=== PATIENT | female | born 1960 | race Asian ===

== ENCOUNTER 2016-07-24 13:26 | Inpatient (IN) | payer MEDICARE, MEDICAID ==
[~2016-07-24] VITALS: Ht 165.1 cm; Wt 73.5 kg
[~2016-07-24 13:26] MED LIST: CLOZ100 PO; DOCU250C76 PO; GABA-531 PO; OLAN10TA3 PO
[2016-07-24 15:54] VITALS: BP 113/77
[2016-07-24] MEDS ORDERED: PNEUMOCOCCAL VACCINE POLYVALENT 0.5 ML VIAL [PPSV23] IM ONE (16:15)
[2016-07-24] MEDS ORDERED: INFLUENZA VIRUS VACCINE QVS 2016-17 (3YR+)/PF 60 MCG/0.5 ML SYRINGE IM ONE (16:15)
[2016-07-24 16:21] LABS: GLUCOSE,POINT OF CARE 157 MG/DL (70-110)
[2016-07-24 16:25] VITALS: BP 122/97
[2016-07-24] MEDS ORDERED: GLUCAGON,HUMAN RECOMBINANT 1 MG VIAL IM PRN (16:45)
[2016-07-24] MEDS: INSULIN ASPART 100 UNITS/ML SQ PRN (16:54)
[2016-07-24 21:25] LABS: GLUCOSE,POINT OF CARE 110 MG/DL (70-110)
[2016-07-25 00:51] VITALS: BP 108/72
[2016-07-25 06:16] LABS: GLUCOSE,POINT OF CARE 124 MG/DL (70-110)
[2016-07-25 08:01] LABS: BASOPHILS # (AUTO) 0.05 K/uL (0.00-0.20); BASOPHILS % (AUTO) 0.7 % (0.0-2.0); EOSINOPHILS # (AUTO) 0.12 K/uL (0.00-0.70); EOSINOPHILS % (AUTO) 1.42 % (1.0-6.0); HEMATOCRIT 42.5 % (36-46); HEMOGLOBIN 14.1 g/dL (12.0-16.0); LYMPHOCYTES % (AUTO) 36.7 % (22.0-44.0); MEAN CORPUSCULAR HEMOGLOBIN 30.5 pg (26.0-34.0); MEAN CORPUSCULAR HGB CONC 33.2 G/dL (31.0-37.0); MEAN CORPUSCULAR VOLUME 92 fL (80-100); MONOCYTES # (AUTO) 0.5 K/uL (0.1-1.0); MONOCYTES % (AUTO) 6.3 % (2.0-9.0); NEUTROPHILS # (AUTO) 4.6 K/uL (1.8-7.7); PLATELET COUNT (AUTO) 277 K/uL (150-450); RED BLOOD CELL COUNT(AUTO) 4.62 MIL/uL (4.00-5.20); RED CELL DISTRIBUTION WIDTH 13.5 % (11.5-14.5); WHITE BLOOD COUNT (AUTO) 8.3 K/uL (4.5-11.0)
[2016-07-25 08:10] VITALS: BP 100/61
[2016-07-25 08:20] LABS: HEMOGLOBIN A1C 5.7 % (4.5-6.2)
[2016-07-25 08:37] LABS: ALANINE AMINOTRANSFERASE 60 U/L (12-78); ALBUMIN 3.6 g/dL (3.4-5.0); ANION GAP 9 mmol/L (8-16); ASPARTATE AMINOTRANSFERASE 27 U/L (15-37); BILIRUBIN,TOTAL 0.6 mg/dL (0.1-1.0); CARBON DIOXIDE 26 mmol/L (22-29); CHLORIDE 106 mmol/L (98-107); CHOL/HDL RATIO 3.1 (3.9-5.7); CREATININE 0.67 mg/dL (0.60-1.30); GLOMERULAR FILTR. RATE CALC > 60 mL/min (>60); POTASSIUM 4.3 mmol/L (3.5-5.1); SODIUM SERUM 141 mmol/L (136-145); THYROID STIMULATING HORMONE 1.11 uIU/mL (0.36-3.74); TOTAL PROTEIN, SERUM 6.4 g/dL (6.4-8.2); UREA NITROGEN, BLOOD 16 mg/dL (7-18)
[2016-07-25] MEDS: GABAPENTIN 400 MG CAPSULE PO SCH ×3 (08:51→16:30)
[2016-07-25] MEDS: NICOTINE 21 MG/24 HOUR PATCH TD SCH (08:52)
[2016-07-25] MEDS ORDERED: CloZAPine 25 MG TABLET PO SCH (09:00)
[2016-07-25] MEDS: HALOPERIDOL 5 MG TABLET PO PRN (10:21)
[2016-07-25 11:00] LABS: GLUCOSE,POINT OF CARE 118 MG/DL (70-110)
[2016-07-25 16:10] VITALS: BP 115/73
[2016-07-25 16:10] LABS: GLUCOSE,POINT OF CARE 145 MG/DL (70-110)
[2016-07-25] MEDS: INSULIN ASPART 100 UNITS/ML SQ PRN (16:31)
[2016-07-25 20:11] LABS: GLUCOSE,POINT OF CARE 126 MG/DL (70-110)
[2016-07-26 00:05] VITALS: BP 125/86
[2016-07-26] MEDS: ZOLPIDEM TARTRATE 10 MG TABLET PO PRN (00:13)
[2016-07-26 06:01] LABS: GLUCOSE,POINT OF CARE 130 MG/DL (70-110)
[2016-07-26] MEDS: LORazepam 2 MG TABLET PO PRN (08:04)
[2016-07-26] MEDS: NICOTINE 21 MG/24 HOUR PATCH TD SCH (08:05)
[2016-07-26] MEDS: GABAPENTIN 400 MG CAPSULE PO SCH ×3 (08:05→16:35)
[2016-07-26 08:33] VITALS: BP 123/94
[2016-07-26] MEDS: HALOPERIDOL 5 MG TABLET PO PRN (08:51)
[2016-07-26] MEDS ORDERED: CloZAPine 25 MG TABLET PO SCH ×2 (09:00→21:00)
[2016-07-26] MEDS: DOCUSATE SODIUM 100 MG CAPSULE PO SCH ×2 (09:06→16:34)
[2016-07-26] MEDS ORDERED: TUBERCULIN, PURIFIED PROTEIN DERIVATIVE 5 TU/0.1 ML SYG ID ONE (10:45)
[2016-07-26 12:31] LABS: GLUCOSE,POINT OF CARE 122 MG/DL (70-110)
[2016-07-26 16:02] VITALS: BP_SYST 121; BP_SYST 128; BP_DIAS 77; BP_DIAS 86
[2016-07-26 16:10] LABS: GLUCOSE,POINT OF CARE 148 MG/DL (70-110)
[2016-07-26] MEDS: INSULIN ASPART 100 UNITS/ML SQ PRN (16:28)
[2016-07-26] MEDS: MAGNESIUM HYDROXIDE SUSPENSION 30 ML UDCUP PO PRN (17:55)
[2016-07-26 20:16] LABS: GLUCOSE,POINT OF CARE 138 MG/DL (70-110)
[2016-07-27 06:21] VITALS: BP 120/90
[2016-07-27 06:37] LABS: GLUCOSE,POINT OF CARE 124 MG/DL (70-110)
[2016-07-27 08:10] VITALS: BP 127/92
[2016-07-27] MEDS: LORazepam 2 MG TABLET PO PRN (08:26)
[2016-07-27] MEDS: GABAPENTIN 400 MG CAPSULE PO SCH ×3 (08:26→16:56)
[2016-07-27] MEDS: HALOPERIDOL 5 MG TABLET PO PRN (08:26)
[2016-07-27] MEDS: DOCUSATE SODIUM 100 MG CAPSULE PO SCH ×2 (08:26→16:49)
[2016-07-27] MEDS: NICOTINE 21 MG/24 HOUR PATCH TD SCH (08:26)
[2016-07-27] MEDS ORDERED: CloZAPine 25 MG TABLET PO SCH ×2 (09:00→21:00)
[2016-07-27 11:23] VITALS: BP 103/74
[2016-07-27 16:23] VITALS: BP 119/71
[2016-07-27 16:47] LABS: GLUCOSE,POINT OF CARE 187 MG/DL (70-110)
[2016-07-27] MEDS: INSULIN ASPART 100 UNITS/ML SQ PRN (16:48)
[2016-07-27] MEDS: MAGNESIUM HYDROXIDE SUSPENSION 30 ML UDCUP PO PRN (20:23)
[2016-07-27 20:42] LABS: GLUCOSE,POINT OF CARE 114 MG/DL (70-110)
[2016-07-27] MEDS: LevETIRAcetam 250 MG TABLET PO SCH (21:55)
[2016-07-28 06:04] VITALS: BP 109/68
[2016-07-28 06:41] LABS: GLUCOSE,POINT OF CARE 139 MG/DL (70-110)
[2016-07-28 08:09] VITALS: BP 126/84
[2016-07-28] MEDS: LevETIRAcetam 250 MG TABLET PO SCH ×2 (08:11→16:32)
[2016-07-28] MEDS: NICOTINE 21 MG/24 HOUR PATCH TD SCH (08:11)
[2016-07-28] MEDS: LORazepam 2 MG TABLET PO PRN (08:11)
[2016-07-28] MEDS: DOCUSATE SODIUM 100 MG CAPSULE PO SCH ×2 (08:11→16:32)
[2016-07-28] MEDS: CloZAPine 25 MG TABLET PO SCH ×2 (08:12→20:29)
[2016-07-28] MEDS: GABAPENTIN 400 MG CAPSULE PO SCH ×3 (08:12→16:32)
[2016-07-28] MEDS: HALOPERIDOL 5 MG TABLET PO PRN (09:27)
[2016-07-28 11:16] LABS: GLUCOSE COMMENT 1 Received Meds; GLUCOSE,POINT OF CARE 98 MG/DL (70-110)
[2016-07-28 16:23] VITALS: BP 124/87
[2016-07-28 16:46] LABS: GLUCOSE COMMENT 1 Received Meds; GLUCOSE,POINT OF CARE 132 MG/DL (70-110)
[2016-07-28 20:18] LABS: GLUCOSE COMMENT 1 Received Meds; GLUCOSE,POINT OF CARE 156 MG/DL (70-110)
[2016-07-28] MEDS: INSULIN ASPART 100 UNITS/ML SQ PRN (20:33)
[2016-07-28] MEDS: MAGNESIUM HYDROXIDE SUSPENSION 30 ML UDCUP PO PRN (23:39)
[2016-07-29 00:19] VITALS: BP 128/77
[2016-07-29 06:22] LABS: GLUCOSE,POINT OF CARE 135 MG/DL (70-110)
[2016-07-29 08:41] VITALS: BP 100/66
[2016-07-29] MEDS: LevETIRAcetam 250 MG TABLET PO SCH ×2 (09:14→17:09)
[2016-07-29] MEDS: NICOTINE 21 MG/24 HOUR PATCH TD SCH (09:15)
[2016-07-29] MEDS: DOCUSATE SODIUM 100 MG CAPSULE PO SCH ×2 (09:15→17:09)
[2016-07-29] MEDS: CloZAPine 25 MG TABLET PO SCH ×2 (09:15→20:31)
[2016-07-29] MEDS: GABAPENTIN 400 MG CAPSULE PO SCH ×3 (09:19→17:08)
[2016-07-29] MEDS: LORazepam 2 MG TABLET PO PRN (09:53)
[2016-07-29 12:17] LABS: GLUCOSE,POINT OF CARE 132 MG/DL (70-110)
[2016-07-29 16:18] VITALS: BP 104/74
[2016-07-29 16:57] LABS: GLUCOSE COMMENT 1 Received Meds; GLUCOSE,POINT OF CARE 113 MG/DL (70-110)
[2016-07-29] MEDS: INSULIN ASPART 100 UNITS/ML SQ PRN (20:33)
[2016-07-29 20:51] LABS: GLUCOSE COMMENT 1 Received Meds; GLUCOSE,POINT OF CARE 175 MG/DL (70-110)
[2016-07-30 00:11] VITALS: BP 110/73
[2016-07-30] MEDS: LORazepam 2 MG TABLET PO PRN (00:47)
[2016-07-30] MEDS: ZOLPIDEM TARTRATE 10 MG TABLET PO PRN (00:47)
[2016-07-30 06:22] LABS: GLUCOSE,POINT OF CARE 119 MG/DL (70-110)
[2016-07-30 08:52] VITALS: BP 113/70
[2016-07-30] MEDS: GABAPENTIN 400 MG CAPSULE PO SCH ×3 (08:54→16:11)
[2016-07-30] MEDS: DOCUSATE SODIUM 100 MG CAPSULE PO SCH ×2 (08:54→16:11)
[2016-07-30] MEDS: LevETIRAcetam 250 MG TABLET PO SCH ×2 (08:54→16:11)
[2016-07-30] MEDS: NICOTINE 21 MG/24 HOUR PATCH TD SCH (08:55)
[2016-07-30] MEDS ORDERED: CloZAPine 25 MG TABLET PO SCH (09:00)
[2016-07-30 11:31] LABS: GLUCOSE,POINT OF CARE 129 MG/DL (70-110)
[2016-07-30 16:17] VITALS: BP 120/68
[2016-07-30 16:27] LABS: GLUCOSE,POINT OF CARE 170 MG/DL (70-110)
[2016-07-30] MEDS: INSULIN ASPART 100 UNITS/ML SQ PRN ×2 (16:58→20:33)
[2016-07-30 20:26] LABS: GLUCOSE,POINT OF CARE 156 MG/DL (70-110)
[2016-07-30] MEDS ORDERED: CloZAPine 100 MG TABLET PO SCH (21:00)
[2016-07-30] MEDS: MAGNESIUM HYDROXIDE SUSPENSION 30 ML UDCUP PO PRN (21:07)
[2016-07-31 06:29] VITALS: BP 110/72
[2016-07-31] MEDS: INSULIN ASPART 100 UNITS/ML SQ PRN ×2 (06:56→16:26)
[2016-07-31 06:57] LABS: GLUCOSE,POINT OF CARE 142 MG/DL (70-110)
[2016-07-31 08:12] VITALS: BP 108/69
[2016-07-31] MEDS ORDERED: CloZAPine 25 MG TABLET PO SCH (09:00)
[2016-07-31] MEDS: DOCUSATE SODIUM 100 MG CAPSULE PO SCH ×2 (09:02→16:06)
[2016-07-31] MEDS: LevETIRAcetam 250 MG TABLET PO SCH ×2 (09:02→16:06)
[2016-07-31] MEDS: GABAPENTIN 400 MG CAPSULE PO SCH ×3 (09:02→16:06)
[2016-07-31] MEDS: NICOTINE 21 MG/24 HOUR PATCH TD SCH (09:03)
[2016-07-31 12:01] LABS: GLUCOSE,POINT OF CARE 138 MG/DL (70-110)
[2016-07-31 16:08] VITALS: BP 112/72
[2016-07-31 16:27] LABS: GLUCOSE COMMENT 1 Received Meds; GLUCOSE,POINT OF CARE 184 MG/DL (70-110)
[2016-07-31] MEDS: MAGNESIUM HYDROXIDE SUSPENSION 30 ML UDCUP PO PRN (20:24)
[2016-07-31 20:26] LABS: GLUCOSE COMMENT 1 Received Meds; GLUCOSE,POINT OF CARE 131 MG/DL (70-110)
[2016-07-31] MEDS: ZOLPIDEM TARTRATE 10 MG TABLET PO PRN (20:47)
[2016-07-31] MEDS ORDERED: CloZAPine 100 MG TABLET PO SCH (21:00)
[2016-08-01 06:46] VITALS: BP 105/61
[2016-08-01 07:17] LABS: GLUCOSE,POINT OF CARE 132 MG/DL (70-110)
[2016-08-01 08:03] LABS: BASOPHILS # (AUTO) 0.03 K/uL (0.00-0.20); BASOPHILS % (AUTO) 0.5 % (0.0-2.0); EOSINOPHILS # (AUTO) 0.07 K/uL (0.00-0.70); EOSINOPHILS % (AUTO) 1.22 % (1.0-6.0); HEMATOCRIT 41.2 % (36-46); HEMOGLOBIN 13.8 g/dL (12.0-16.0); LYMPHOCYTES # (AUTO) 2.3 K/uL (1.0-4.8); LYMPHOCYTES % (AUTO) 39.9 % (22.0-44.0); MEAN CORPUSCULAR HEMOGLOBIN 30.7 pg (26.0-34.0); MEAN CORPUSCULAR HGB CONC 33.5 G/dL (31.0-37.0); MEAN CORPUSCULAR VOLUME 92 fL (80-100); MONOCYTES # (AUTO) 0.3 K/uL (0.1-1.0); MONOCYTES % (AUTO) 5.9 % (2.0-9.0); NEUTROPHILS % (AUTO) 52.5 % (40.0-70.0); PLATELET COUNT (AUTO) 226 K/uL (150-450); RED CELL DISTRIBUTION WIDTH 12.5 % (11.5-14.5); WHITE BLOOD COUNT (AUTO) 5.8 K/uL (4.5-11.0)
[2016-08-01 08:18] VITALS: BP 112/73
[2016-08-01] MEDS ORDERED: CloZAPine 25 MG TABLET PO SCH (09:00)
[2016-08-01] MEDS: NICOTINE 21 MG/24 HOUR PATCH TD SCH (09:23)
[2016-08-01] MEDS: GABAPENTIN 400 MG CAPSULE PO SCH ×3 (09:23→17:13)
[2016-08-01] MEDS: LevETIRAcetam 250 MG TABLET PO SCH ×2 (09:23→17:13)
[2016-08-01] MEDS: DOCUSATE SODIUM 100 MG CAPSULE PO SCH ×2 (09:23→17:13)
[2016-08-01] MEDS: HALOPERIDOL 5 MG TABLET PO PRN (10:49)
[2016-08-01 16:17] LABS: GLUCOSE,POINT OF CARE 82 MG/DL (70-110)
[2016-08-01 20:14] VITALS: BP 106/80
[2016-08-01 20:17] LABS: GLUCOSE,POINT OF CARE 183 MG/DL (70-110)
[2016-08-01] MEDS: INSULIN ASPART 100 UNITS/ML SQ PRN (20:19)
[2016-08-01] MEDS ORDERED: CloZAPine 100 MG TABLET PO SCH (21:00)
[2016-08-02 06:09] VITALS: BP 111/70
[2016-08-02 06:22] LABS: GLUCOSE,POINT OF CARE 139 MG/DL (70-110)
[2016-08-02 08:24] VITALS: BP 117/80
[2016-08-02] MEDS: CloZAPine 100 MG TABLET PO SCH ×2 (09:08→20:34)
[2016-08-02] MEDS: DOCUSATE SODIUM 100 MG CAPSULE PO SCH ×2 (09:08→16:37)
[2016-08-02] MEDS: LevETIRAcetam 250 MG TABLET PO SCH ×2 (09:08→16:37)
[2016-08-02] MEDS: GABAPENTIN 400 MG CAPSULE PO SCH ×3 (09:08→16:37)
[2016-08-02] MEDS: NICOTINE 21 MG/24 HOUR PATCH TD SCH (09:09)
[2016-08-02] MEDS: LORazepam 2 MG TABLET PO PRN (09:54)
[2016-08-02] MEDS: MAGNESIUM HYDROXIDE SUSPENSION 30 ML UDCUP PO PRN (09:58)
[2016-08-02 11:26] LABS: GLUCOSE,POINT OF CARE 122 MG/DL (70-110)
[2016-08-02 16:07] VITALS: BP 109/64
[2016-08-02] MEDS: INSULIN ASPART 100 UNITS/ML SQ PRN (17:00)
[2016-08-02 17:07] LABS: GLUCOSE,POINT OF CARE 168 MG/DL (70-110)
[2016-08-02 20:41] LABS: GLUCOSE,POINT OF CARE 122 MG/DL (70-110)
[2016-08-02] MEDS: ZOLPIDEM TARTRATE 10 MG TABLET PO PRN (22:38)
[2016-08-03 06:47] LABS: GLUCOSE,POINT OF CARE 126 MG/DL (70-110)
[2016-08-03] MEDS: MetFORMIN HCL 500 MG TABLET PO SCH ×2 (06:48→16:49)
[2016-08-03 07:16] VITALS: BP 102/64
[2016-08-03 08:50] VITALS: BP 117/81
[2016-08-03] MEDS: GABAPENTIN 400 MG CAPSULE PO SCH ×3 (09:52→16:49)
[2016-08-03] MEDS: MULTIVITAMINS WITH MINERALS, THERAPEUTIC TABLET PO SCH (09:52)
[2016-08-03] MEDS: CloZAPine 100 MG TABLET PO SCH ×2 (09:52→20:39)
[2016-08-03] MEDS: NICOTINE 21 MG/24 HOUR PATCH TD SCH (09:53)
[2016-08-03] MEDS: DOCUSATE SODIUM 100 MG CAPSULE PO SCH ×3 (09:53→16:49)
[2016-08-03] MEDS: LevETIRAcetam 250 MG TABLET PO SCH ×2 (10:28→16:49)
[2016-08-03] MEDS: INSULIN ASPART 100 UNITS/ML SQ PRN ×3 (11:26→20:25)
[2016-08-03 11:28] LABS: GLUCOSE,POINT OF CARE 150 MG/DL (70-110)
[2016-08-03] MEDS: HALOPERIDOL 5 MG TABLET PO PRN (13:46)
[2016-08-03 16:13] VITALS: BP 120/78
[2016-08-03 16:36] LABS: GLUCOSE,POINT OF CARE 163 MG/DL (70-110)
[2016-08-03] MEDS: MAGNESIUM HYDROXIDE SUSPENSION 30 ML UDCUP PO PRN (19:58)
[2016-08-03 20:12] LABS: GLUCOSE,POINT OF CARE 165 MG/DL (70-110)
[2016-08-03] MEDS: ZOLPIDEM TARTRATE 10 MG TABLET PO PRN (22:51)
[2016-08-04 06:13] VITALS: BP 118/73
[2016-08-04 06:16] LABS: GLUCOSE COMMENT 1 Received Meds; GLUCOSE,POINT OF CARE 128 MG/DL (70-110)
[2016-08-04] MEDS: MetFORMIN HCL 500 MG TABLET PO SCH ×2 (07:09→16:45)
[2016-08-04 08:37] VITALS: BP 113/72
[2016-08-04] MEDS ORDERED: CloZAPine 25 MG TABLET PO SCH (09:00)
[2016-08-04] MEDS: DOCUSATE SODIUM 100 MG CAPSULE PO SCH ×3 (09:02→16:45)
[2016-08-04] MEDS: GABAPENTIN 400 MG CAPSULE PO SCH ×3 (09:02→16:45)
[2016-08-04] MEDS: LevETIRAcetam 250 MG TABLET PO SCH ×2 (09:07→16:45)
[2016-08-04] MEDS: MULTIVITAMINS WITH MINERALS, THERAPEUTIC TABLET PO SCH (09:08)
[2016-08-04] MEDS: NICOTINE 21 MG/24 HOUR PATCH TD SCH (09:08)
[2016-08-04] MEDS: HALOPERIDOL 5 MG TABLET PO PRN (09:17)
[2016-08-04 11:42] LABS: GLUCOSE,POINT OF CARE 111 MG/DL (70-110)
[2016-08-04 16:16] LABS: GLUCOSE,POINT OF CARE 116 MG/DL (70-110)
[2016-08-04 16:53] VITALS: BP 123/71
[2016-08-04 20:16] LABS: GLUCOSE,POINT OF CARE 119 MG/DL (70-110)
[2016-08-04] MEDS ORDERED: CloZAPine 100 MG TABLET PO SCH (21:00)
[2016-08-05 06:12] VITALS: BP 100/60
[2016-08-05 06:12] LABS: GLUCOSE,POINT OF CARE 111 MG/DL (70-110)
[2016-08-05] MEDS: MetFORMIN HCL 500 MG TABLET PO SCH ×2 (06:58→16:39)
[2016-08-05 08:25] VITALS: BP 123/76
[2016-08-05] MEDS ORDERED: CloZAPine 25 MG TABLET PO SCH (09:00)
[2016-08-05] MEDS: DOCUSATE SODIUM 100 MG CAPSULE PO SCH ×3 (10:38→17:03)
[2016-08-05] MEDS: LevETIRAcetam 250 MG TABLET PO SCH ×2 (10:38→16:11)
[2016-08-05] MEDS: HALOPERIDOL 5 MG TABLET PO PRN ×2 (10:38→17:16)
[2016-08-05] MEDS: GABAPENTIN 400 MG CAPSULE PO SCH ×3 (10:38→17:03)
[2016-08-05] MEDS: MULTIVITAMINS WITH MINERALS, THERAPEUTIC TABLET PO SCH (10:38)
[2016-08-05] MEDS: NICOTINE 21 MG/24 HOUR PATCH TD SCH (10:39)
[2016-08-05 11:36] LABS: GLUCOSE,POINT OF CARE 140 MG/DL (70-110)
[2016-08-05] MEDS: MAGNESIUM HYDROXIDE SUSPENSION 30 ML UDCUP PO PRN (16:07)
[2016-08-05 16:12] VITALS: BP 118/77
[2016-08-05 16:22] LABS: GLUCOSE,POINT OF CARE 199 MG/DL (70-110)
[2016-08-05] MEDS: INSULIN ASPART 100 UNITS/ML SQ PRN (17:22)
[2016-08-05 20:37] LABS: GLUCOSE,POINT OF CARE 137 MG/DL (70-110)
[2016-08-05] MEDS ORDERED: CloZAPine 100 MG TABLET PO SCH (21:00)
[2016-08-05] MEDS: ZOLPIDEM TARTRATE 10 MG TABLET PO PRN (21:02)
[2016-08-06 06:44] VITALS: BP 101/60
[2016-08-06 06:46] LABS: GLUCOSE,POINT OF CARE 112 MG/DL (70-110)
[2016-08-06] MEDS: MetFORMIN HCL 500 MG TABLET PO SCH ×2 (07:11→16:48)
[2016-08-06 07:41] LABS: APPEARANCE,URINE CLEAR (CLEAR); GLUCOSE, URINE (UA) NEGATIVE (NEGATIVE); KETONES,URINE NEGATIVE (NEGATIVE); LEUKOCYTE ESTERASE ,URINE MODERATE (NEGATIVE); OCCULT BLOOD,URINE NEGATIVE (NEGATIVE); PH,URINE 5.5 (5.0-8.0); PROTEIN,URINE NEGATIVE (NEGATIVE)
[2016-08-06 07:44] LABS: ADD UA MICROSCOPIC YES
[2016-08-06 07:46] LABS: RBC,URINE 0-2 /HPF (0-2); SQUAMOUS EPITHELIAL CELL,UR Few /LPF (None Seen)
[2016-08-06 08:29] VITALS: BP 109/72
[2016-08-06] MEDS: CloZAPine 100 MG TABLET PO SCH ×2 (09:18→20:27)
[2016-08-06] MEDS: NICOTINE 21 MG/24 HOUR PATCH TD SCH (09:18)
[2016-08-06] MEDS: MULTIVITAMINS WITH MINERALS, THERAPEUTIC TABLET PO SCH (09:18)
[2016-08-06] MEDS: DOCUSATE SODIUM 100 MG CAPSULE PO SCH ×3 (09:18→16:04)
[2016-08-06] MEDS: GABAPENTIN 400 MG CAPSULE PO SCH ×3 (09:18→16:48)
[2016-08-06] MEDS: LevETIRAcetam 250 MG TABLET PO SCH ×2 (09:18→16:03)
[2016-08-06] MEDS: HALOPERIDOL 5 MG TABLET PO PRN (09:53)
[2016-08-06 11:27] LABS: GLUCOSE,POINT OF CARE 101 MG/DL (70-110)
[2016-08-06] MEDS ORDERED: TUBERCULIN, PURIFIED PROTEIN DERIVATIVE 5 TU/0.1 ML SYG ID ONE (12:30)
[2016-08-06] MEDS: CIPROFLOXACIN HCL 500 MG TABLET PO SCH (16:02)
[2016-08-06 16:16] LABS: GLUCOSE,POINT OF CARE 123 MG/DL (70-110)
[2016-08-06 16:25] VITALS: BP 110/66
[2016-08-06] MEDS: MAGNESIUM HYDROXIDE SUSPENSION 30 ML UDCUP PO PRN (20:27)
[2016-08-06 20:37] LABS: GLUCOSE,POINT OF CARE 148 MG/DL (70-110)
[2016-08-06] MEDS: INSULIN ASPART 100 UNITS/ML SQ PRN (20:48)
[2016-08-06] MEDS: ZOLPIDEM TARTRATE 10 MG TABLET PO PRN (21:07)
[2016-08-07 06:28] VITALS: BP 101/67
[2016-08-07 06:37] LABS: GLUCOSE,POINT OF CARE 114 MG/DL (70-110)
[2016-08-07] MEDS: MetFORMIN HCL 500 MG TABLET PO SCH ×2 (07:01→16:47)
[2016-08-07] MEDS: CloZAPine 100 MG TABLET PO SCH ×2 (09:03→20:38)
[2016-08-07] MEDS: CIPROFLOXACIN HCL 500 MG TABLET PO SCH ×2 (09:03→16:48)
[2016-08-07] MEDS: LevETIRAcetam 250 MG TABLET PO SCH ×2 (09:03→16:48)
[2016-08-07] MEDS: MULTIVITAMINS WITH MINERALS, THERAPEUTIC TABLET PO SCH (09:03)
[2016-08-07] MEDS: DOCUSATE SODIUM 100 MG CAPSULE PO SCH ×3 (09:03→16:47)
[2016-08-07] MEDS: GABAPENTIN 400 MG CAPSULE PO SCH ×3 (09:04→16:47)
[2016-08-07] MEDS: NICOTINE 21 MG/24 HOUR PATCH TD SCH (09:04)
[2016-08-07 11:36] LABS: GLUCOSE,POINT OF CARE 110 MG/DL (70-110)
[2016-08-07 16:26] VITALS: BP 125/80
[2016-08-07 16:46] LABS: GLUCOSE,POINT OF CARE 124 MG/DL (70-110)
[2016-08-07 20:11] LABS: GLUCOSE,POINT OF CARE 103 MG/DL (70-110)
[2016-08-08 00:52] VITALS: BP 112/78
[2016-08-08] MEDS: ZOLPIDEM TARTRATE 10 MG TABLET PO PRN (00:52)
[2016-08-08 06:31] LABS: GLUCOSE,POINT OF CARE 120 MG/DL (70-110)
[2016-08-08] MEDS: MetFORMIN HCL 500 MG TABLET PO SCH ×2 (06:40→17:09)
[2016-08-08 08:23] LABS: BASOPHILS % (AUTO) 0.4 % (0.0-2.0); HEMATOCRIT 43.8 % (36-46); HEMOGLOBIN 14.6 g/dL (12.0-16.0); LYMPHOCYTES # (AUTO) 2.8 K/uL (1.0-4.8); LYMPHOCYTES % (AUTO) 40.1 % (22.0-44.0); MEAN CORPUSCULAR HEMOGLOBIN 30.5 pg (26.0-34.0); MEAN CORPUSCULAR HGB CONC 33.2 G/dL (31.0-37.0); MEAN CORPUSCULAR VOLUME 92 fL (80-100); MONOCYTES # (AUTO) 0.3 K/uL (0.1-1.0); NEUTROPHILS # (AUTO) 3.8 K/uL (1.8-7.7); NEUTROPHILS % (AUTO) 53.5 % (40.0-70.0); PLATELET COUNT (AUTO) 220 K/uL (150-450); RED BLOOD CELL COUNT(AUTO) 4.77 MIL/uL (4.00-5.20); RED CELL DISTRIBUTION WIDTH 12.9 % (11.5-14.5)
[2016-08-08 08:24] VITALS: BP 121/85
[2016-08-08] MEDS: MULTIVITAMINS WITH MINERALS, THERAPEUTIC TABLET PO SCH (08:47)
[2016-08-08] MEDS: NICOTINE 21 MG/24 HOUR PATCH TD SCH (08:47)
[2016-08-08] MEDS: DOCUSATE SODIUM 100 MG CAPSULE PO SCH ×3 (08:47→17:09)
[2016-08-08] MEDS: CloZAPine 100 MG TABLET PO SCH ×2 (08:47→20:39)
[2016-08-08] MEDS: GABAPENTIN 400 MG CAPSULE PO SCH ×3 (08:47→17:09)
[2016-08-08] MEDS: LevETIRAcetam 250 MG TABLET PO SCH ×2 (08:47→17:09)
[2016-08-08] MEDS: CIPROFLOXACIN HCL 500 MG TABLET PO SCH ×2 (09:07→17:09)
[2016-08-08 11:27] LABS: GLUCOSE,POINT OF CARE 130 MG/DL (70-110)
[2016-08-08 16:12] VITALS: BP 129/84
[2016-08-08 16:37] LABS: GLUCOSE,POINT OF CARE 155 MG/DL (70-110)
[2016-08-08] MEDS: INSULIN ASPART 100 UNITS/ML SQ PRN (17:48)
[2016-08-08] MEDS: MAGNESIUM HYDROXIDE SUSPENSION 30 ML UDCUP PO PRN (17:50)
[2016-08-08 20:12] LABS: GLUCOSE,POINT OF CARE 122 MG/DL (70-110)
[2016-08-09 00:25] VITALS: BP 132/80
[2016-08-09 06:22] LABS: GLUCOSE,POINT OF CARE 195 MG/DL (70-110)
[2016-08-09] MEDS: MetFORMIN HCL 500 MG TABLET PO SCH ×2 (06:24→16:40)
[2016-08-09] MEDS: INSULIN ASPART 100 UNITS/ML SQ PRN ×2 (06:57→20:44)
[2016-08-09] MEDS: GABAPENTIN 400 MG CAPSULE PO SCH ×3 (08:47→16:40)
[2016-08-09] MEDS: CloZAPine 100 MG TABLET PO SCH ×2 (08:47→20:36)
[2016-08-09] MEDS: LevETIRAcetam 250 MG TABLET PO SCH ×2 (08:47→16:41)
[2016-08-09] MEDS: CIPROFLOXACIN HCL 500 MG TABLET PO SCH ×2 (08:47→16:40)
[2016-08-09] MEDS: DOCUSATE SODIUM 100 MG CAPSULE PO SCH ×3 (08:47→16:41)
[2016-08-09] MEDS: MULTIVITAMINS WITH MINERALS, THERAPEUTIC TABLET PO SCH (08:47)
[2016-08-09] MEDS: NICOTINE 21 MG/24 HOUR PATCH TD SCH (08:48)
[2016-08-09 09:12] VITALS: BP 108/60
[2016-08-09 12:02] LABS: GLUCOSE,POINT OF CARE 116 MG/DL (70-110)
[2016-08-09 16:15] VITALS: BP 116/90
[2016-08-09 16:28] LABS: GLUCOSE,POINT OF CARE 135 MG/DL (70-110)
[2016-08-09 20:21] LABS: GLUCOSE,POINT OF CARE 149 MG/DL (70-110)
[2016-08-09] MEDS: MAGNESIUM HYDROXIDE SUSPENSION 30 ML UDCUP PO PRN (21:16)
[2016-08-10 05:50] VITALS: BP 111/70
[2016-08-10 06:27] LABS: GLUCOSE,POINT OF CARE 113 MG/DL (70-110)
[2016-08-10] MEDS: MetFORMIN HCL 500 MG TABLET PO SCH ×2 (06:51→16:37)
[2016-08-10 08:37] VITALS: BP 125/92
[2016-08-10] MEDS: DOCUSATE SODIUM 100 MG CAPSULE PO SCH ×3 (09:10→16:37)
[2016-08-10] MEDS: MULTIVITAMINS WITH MINERALS, THERAPEUTIC TABLET PO SCH (09:10)
[2016-08-10] MEDS: LevETIRAcetam 250 MG TABLET PO SCH ×2 (09:10→16:36)
[2016-08-10] MEDS: CloZAPine 100 MG TABLET PO SCH ×2 (09:10→21:05)
[2016-08-10] MEDS: GABAPENTIN 400 MG CAPSULE PO SCH ×3 (09:10→16:37)
[2016-08-10] MEDS: CIPROFLOXACIN HCL 500 MG TABLET PO SCH ×2 (09:10→16:37)
[2016-08-10] MEDS: NICOTINE 21 MG/24 HOUR PATCH TD SCH (09:11)
[2016-08-10 11:07] LABS: GLUCOSE,POINT OF CARE 119 MG/DL (70-110)
[2016-08-10] MEDS: HALOPERIDOL 5 MG TABLET PO PRN (11:38)
[2016-08-10 11:45] VITALS: BP 110/77
[2016-08-10 16:16] VITALS: BP 121/76
[2016-08-10 16:21] LABS: GLUCOSE,POINT OF CARE 155 MG/DL (70-110)
[2016-08-10] MEDS: INSULIN ASPART 100 UNITS/ML SQ PRN ×2 (17:14→20:25)
[2016-08-10 20:11] LABS: GLUCOSE,POINT OF CARE 168 MG/DL (70-110)
[2016-08-11 06:52] LABS: GLUCOSE,POINT OF CARE 130 MG/DL (70-110)
[2016-08-11 07:20] VITALS: BP 124/61
[2016-08-11] MEDS: MetFORMIN HCL 500 MG TABLET PO SCH ×2 (07:31→17:09)
[2016-08-11] MEDS: NICOTINE 21 MG/24 HOUR PATCH TD SCH (08:21)
[2016-08-11] MEDS: GABAPENTIN 400 MG CAPSULE PO SCH ×3 (08:21→17:09)
[2016-08-11] MEDS: MULTIVITAMINS WITH MINERALS, THERAPEUTIC TABLET PO SCH (08:22)
[2016-08-11] MEDS: CloZAPine 100 MG TABLET PO SCH ×2 (08:22→20:18)
[2016-08-11] MEDS: DOCUSATE SODIUM 100 MG CAPSULE PO SCH ×3 (08:22→17:09)
[2016-08-11 08:43] VITALS: BP 115/78
[2016-08-11] MEDS: CIPROFLOXACIN HCL 500 MG TABLET PO SCH ×2 (09:46→17:09)
[2016-08-11] MEDS: LevETIRAcetam 250 MG TABLET PO SCH ×2 (09:47→17:08)
[2016-08-11 11:22] LABS: GLUCOSE,POINT OF CARE 88 MG/DL (70-110)
[2016-08-11 16:11] VITALS: BP 120/67
[2016-08-11 16:47] LABS: GLUCOSE,POINT OF CARE 161 MG/DL (70-110)
[2016-08-11] MEDS: INSULIN ASPART 100 UNITS/ML SQ PRN (17:06)
[2016-08-11 20:46] LABS: GLUCOSE,POINT OF CARE 121 MG/DL (70-110)
[2016-08-12 06:59] VITALS: BP 107/70
[2016-08-12] MEDS: MetFORMIN HCL 500 MG TABLET PO SCH ×2 (07:01→16:42)
[2016-08-12 07:12] LABS: GLUCOSE,POINT OF CARE 104 MG/DL (70-110)
[2016-08-12 08:07] VITALS: BP 109/75
[2016-08-12] MEDS: LevETIRAcetam 250 MG TABLET PO SCH ×2 (08:44→16:42)
[2016-08-12] MEDS: CloZAPine 100 MG TABLET PO SCH ×2 (08:44→20:05)
[2016-08-12] MEDS: CIPROFLOXACIN HCL 500 MG TABLET PO SCH ×2 (08:44→16:41)
[2016-08-12] MEDS: MULTIVITAMINS WITH MINERALS, THERAPEUTIC TABLET PO SCH (08:44)
[2016-08-12] MEDS: NICOTINE 21 MG/24 HOUR PATCH TD SCH (08:44)
[2016-08-12] MEDS: DOCUSATE SODIUM 100 MG CAPSULE PO SCH ×3 (08:44→16:41)
[2016-08-12] MEDS: GABAPENTIN 400 MG CAPSULE PO SCH ×3 (08:44→16:41)
[2016-08-12 11:36] LABS: GLUCOSE,POINT OF CARE 101 MG/DL (70-110)
[2016-08-12 16:19] VITALS: BP 124/83
[2016-08-12] MEDS: MAGNESIUM HYDROXIDE SUSPENSION 30 ML UDCUP PO PRN (16:41)
[2016-08-12] MEDS: INSULIN ASPART 100 UNITS/ML SQ PRN (16:45)
[2016-08-12 16:47] LABS: GLUCOSE,POINT OF CARE 182 MG/DL (70-110)
[2016-08-12 20:27] LABS: GLUCOSE,POINT OF CARE 112 MG/DL (70-110)
[2016-08-13 01:29] VITALS: BP 125/74
[2016-08-13] MEDS: ZOLPIDEM TARTRATE 10 MG TABLET PO PRN (01:31)
[2016-08-13 06:22] LABS: GLUCOSE,POINT OF CARE 108 MG/DL (70-110)
[2016-08-13] MEDS: MetFORMIN HCL 500 MG TABLET PO SCH ×2 (06:51→16:32)
[2016-08-13 08:18] VITALS: BP 108/69
[2016-08-13] MEDS: CIPROFLOXACIN HCL 500 MG TABLET PO SCH (08:23)
[2016-08-13] MEDS: MULTIVITAMINS WITH MINERALS, THERAPEUTIC TABLET PO SCH (08:23)
[2016-08-13] MEDS: LevETIRAcetam 250 MG TABLET PO SCH ×2 (08:23→16:32)
[2016-08-13] MEDS: CloZAPine 100 MG TABLET PO SCH ×2 (08:24→20:35)
[2016-08-13] MEDS: GABAPENTIN 400 MG CAPSULE PO SCH ×3 (08:24→16:33)
[2016-08-13] MEDS: NICOTINE 21 MG/24 HOUR PATCH TD SCH (08:24)
[2016-08-13] MEDS: DOCUSATE SODIUM 100 MG CAPSULE PO SCH ×3 (08:24→16:33)
[2016-08-13 12:02] LABS: GLUCOSE,POINT OF CARE 102 MG/DL (70-110)
[2016-08-13 16:04] VITALS: BP 109/77
[2016-08-13 16:22] LABS: GLUCOSE,POINT OF CARE 127 MG/DL (70-110)
[2016-08-13] MEDS: MAGNESIUM HYDROXIDE SUSPENSION 30 ML UDCUP PO PRN (20:05)
[2016-08-13 20:17] LABS: GLUCOSE,POINT OF CARE 143 MG/DL (70-110)
[2016-08-13] MEDS: INSULIN ASPART 100 UNITS/ML SQ PRN (20:27)
[2016-08-14 00:47] VITALS: BP 120/77
[2016-08-14 06:32] LABS: GLUCOSE,POINT OF CARE 106 MG/DL (70-110)
[2016-08-14] MEDS: MetFORMIN HCL 500 MG TABLET PO SCH ×2 (06:51→17:09)
[2016-08-14 07:36] LABS: BASOPHILS # (AUTO) 0.03 K/uL (0.00-0.20); BASOPHILS % (AUTO) 0.4 % (0.0-2.0); EOSINOPHILS # (AUTO) 0.06 K/uL (0.00-0.70); EOSINOPHILS % (AUTO) 0.79 % (1.0-6.0); HEMATOCRIT 42.7 % (36-46); HEMOGLOBIN 14.6 g/dL (12.0-16.0); LYMPHOCYTES # (AUTO) 2.3 K/uL (1.0-4.8); LYMPHOCYTES % (AUTO) 30.2 % (22.0-44.0); MEAN CORPUSCULAR HEMOGLOBIN 30.9 pg (26.0-34.0); MEAN CORPUSCULAR HGB CONC 34.2 G/dL (31.0-37.0); MEAN CORPUSCULAR VOLUME 90 fL (80-100); MONOCYTES # (AUTO) 0.3 K/uL (0.1-1.0); MONOCYTES % (AUTO) 4.4 % (2.0-9.0); NEUTROPHILS % (AUTO) 64.3 % (40.0-70.0); PLATELET COUNT (AUTO) 228 K/uL (150-450); RED BLOOD CELL COUNT(AUTO) 4.72 MIL/uL (4.00-5.20); RED CELL DISTRIBUTION WIDTH 12.3 % (11.5-14.5); WHITE BLOOD COUNT (AUTO) 7.8 K/uL (4.5-11.0)
[2016-08-14 08:00] VITALS: BP 115/68
[2016-08-14] MEDS: GABAPENTIN 400 MG CAPSULE PO SCH ×3 (09:33→17:09)
[2016-08-14] MEDS: MULTIVITAMINS WITH MINERALS, THERAPEUTIC TABLET PO SCH (09:33)
[2016-08-14] MEDS: LevETIRAcetam 250 MG TABLET PO SCH ×2 (09:33→17:09)
[2016-08-14] MEDS: NICOTINE 21 MG/24 HOUR PATCH TD SCH (09:33)
[2016-08-14] MEDS: DOCUSATE SODIUM 100 MG CAPSULE PO SCH ×3 (09:33→17:09)
[2016-08-14] MEDS: CloZAPine 100 MG TABLET PO SCH ×2 (09:33→20:42)
[2016-08-14 11:56] LABS: GLUCOSE,POINT OF CARE 103 MG/DL (70-110)
[2016-08-14 16:15] VITALS: BP 112/73
[2016-08-14 16:24] LABS: GLUCOSE,POINT OF CARE 142 MG/DL (70-110)
[2016-08-14] MEDS: INSULIN ASPART 100 UNITS/ML SQ PRN (16:30)
[2016-08-14 20:41] LABS: GLUCOSE,POINT OF CARE 116 MG/DL (70-110)
[2016-08-15 01:35] VITALS: BP 122/77
[2016-08-15 06:12] LABS: GLUCOSE,POINT OF CARE 94 MG/DL (70-110)
[2016-08-15] MEDS: MetFORMIN HCL 500 MG TABLET PO SCH (06:48)
[2016-08-15] MEDS ORDERED: GABA-533 PO (07:00)
[2016-08-15] MEDS ORDERED: LEVE250T55 PO (07:00)
[2016-08-15] MEDS ORDERED: DSS100 PO (07:00)
[2016-08-15] MEDS ORDERED: METF500T4 PO (07:00)
[2016-08-15] MEDS ORDERED: CLOZ100 PO ×2 (07:00)
[2016-08-15] MEDS ORDERED: MULT-29 PO (07:00)
[2016-08-15 08:30] VITALS: BP 116/82
[2016-08-15] MEDS: GABAPENTIN 400 MG CAPSULE PO SCH (09:05)
[2016-08-15] MEDS: DOCUSATE SODIUM 100 MG CAPSULE PO SCH (09:05)
[2016-08-15] MEDS: LevETIRAcetam 250 MG TABLET PO SCH (09:05)
[2016-08-15] MEDS: MULTIVITAMINS WITH MINERALS, THERAPEUTIC TABLET PO SCH (09:05)
[2016-08-15] MEDS: CloZAPine 100 MG TABLET PO SCH (09:06)
[2016-08-15] MEDS: NICOTINE 21 MG/24 HOUR PATCH TD SCH (09:08)
== END 2016-08-15 09:15 | disposition home or self-care (01) | DRG 885 ==
LOC: B2X 15:39
PROVIDERS: ADMIT Psychiatry & Neurology Psychiatry; ATTEND Psychiatry & Neurology Psychiatry
PROC: 3E0234Z Introduction of Serum, Toxoid and Vaccine into Muscle, Percutaneous Approach (ICD-10-PCS; principal; 2016-07-25)
PROC: 3E0234Z Introduction of Serum, Toxoid and Vaccine into Muscle, Percutaneous Approach (ICD-10-PCS; 2016-07-25)
DX: F20.0 Paranoid schizophrenia (principal); E11.9 Type 2 diabetes mellitus without complications; J44.9 Chronic obstructive pulmonary disease, unspecified; K21.9 Gastro-esophageal reflux disease without esophagitis; I10 Essential (primary) hypertension; E03.9 Hypothyroidism, unspecified; E78.5 Hyperlipidemia, unspecified; K59.09 Other constipation; F15.90 Other stimulant use, unspecified, uncomplicated; F17.210 Nicotine dependence, cigarettes, uncomplicated; Z71.51 Drug abuse counseling and surveillance of drug abuser; Z23 Encounter for immunization
CPT/HCPCS: 80307; 82962; 83036; 84439; 84443; 87081; 87086; 90471

== ENCOUNTER 2021-01-12 13:08 | Inpatient (IN) | payer MEDICARE, MEDICAID ==
[~2021-01-12] VITALS: Ht 165.1 cm; Wt 55.6 kg
[~2021-01-12 13:08] MED LIST changes: -CLOZ100 PO; +CLOZ100T32 PO; -DOCU250C76 PO; +DSS100 PO; +GABA-1201 PO; -GABA-531 PO; +LEVE250T55 PO; +METF-960 PO; +MULT-29 PO; -OLAN10TA3 PO
[2021-01-12] MEDS ORDERED: OLANZapine 5 MG RAPDIS TABLET PO ONE (14:15)
[2021-01-12 14:59] LABS: BASOPHILS % (AUTO) 0.6 % (0.0-2.0); EOSINOPHILS % (AUTO) 0.6 % (1.0-6.0); HEMATOCRIT 42.1 % (36-46); LYMPHOCYTES # (AUTO) 1.4 K/uL (1.0-4.8); LYMPHOCYTES % (AUTO) 25.8 % (22.0-44.0); MEAN CORPUSCULAR HEMOGLOBIN 30.3 pg (26.0-34.0); MEAN CORPUSCULAR HGB CONC 33.3 G/dL (31.0-37.0); MEAN CORPUSCULAR VOLUME 91 fL (80-100); MONOCYTES # (AUTO) 0.4 K/uL (0.1-1.0); MONOCYTES % (AUTO) 7.2 % (2.0-9.0); NEUTROPHILS # (AUTO) 3.6 K/uL (1.8-7.7); NEUTROPHILS % (AUTO) 65.8 % (40.0-70.0); PLATELET COUNT (AUTO) 220 K/uL (150-450); RED BLOOD CELL COUNT(AUTO) 4.63 MIL/uL (4.00-5.20); RED CELL DISTRIBUTION WIDTH 13.1 % (11.5-14.5)
[2021-01-12 15:10] LABS: ANION GAP 8 mmol/L (8-16); CALCIUM, TOTAL 9.3 mg/dL (8.8-10.5); CARBON DIOXIDE 27 mmol/L (22-29); CHLORIDE 108 mmol/L (98-107); CREATININE 0.55 mg/dL (0.60-1.30); GLOMERULAR FILTR. RATE CALC > 60 mL/min (>60); GLUCOSE,RANDOM 116 mg/dL (70-110); POTASSIUM 4.1 mmol/L (3.5-5.1); SODIUM SERUM 143 mmol/L (136-145); UREA NITROGEN, BLOOD 14 mg/dL (7-18)
[2021-01-12] MEDS ORDERED: ZOLPIDEM TARTRATE 10 MG TABLET PO PRN (15:15)
[2021-01-12 15:17] LABS: ALANINE AMINOTRANSFERASE 29 U/L (12-78); ALBUMIN 3.5 g/dL (3.4-5.0); ALKALINE PHOSPHATASE 71 U/L (46-116); ASPARTATE AMINOTRANSFERASE 18 U/L (15-37); BILIRUBIN,TOTAL 0.3 mg/dL (0.1-1.0); TOTAL PROTEIN, SERUM 6.8 g/dL (6.4-8.2)
[2021-01-12 15:38] LABS: GLUCOSE,POINT OF CARE 109 MG/DL (70-110)
[2021-01-12 16:14] LABS: COVID AG,FIA SOURCE NASOPHARYNGEAL
[2021-01-12] MEDS: HALOPERIDOL 5 MG TABLET PO PRN (19:09)
[2021-01-12] MEDS: LORazepam 2 MG TABLET PO PRN (19:09)
[2021-01-12 19:32] VITALS: BP 134/73
[2021-01-13 06:15] VITALS: BP 132/91
[2021-01-13] MEDS ORDERED: LOPERAMIDE HCL 2 MG CAPSULE PO PRN (06:30)
[2021-01-13] MEDS: LORazepam 2 MG TABLET PO PRN ×2 (06:30→11:03)
[2021-01-13] MEDS ORDERED: MAGNESIUM HYDROXIDE SUSPENSION 30 ML UDCUP PO PRN (06:30)
[2021-01-13] MEDS ORDERED: ACETAMINOPHEN 325 MG TABLET PO PRN (06:30)
[2021-01-13] MEDS ORDERED: ONDANSETRON HCL 4 MG TABLET PO PRN (06:30)
[2021-01-13] MEDS ORDERED: DOCUSATE SODIUM 100 MG CAPSULE PO PRN (06:30)
[2021-01-13] MEDS: HALOPERIDOL 5 MG TABLET PO PRN ×2 (06:30→11:03)
[2021-01-13] MEDS ORDERED: MAG HYDROX/AL HYDROX/SIMETH ES 30 ML SUSPENSION UDCUP PO PRN (06:30)
[2021-01-13] MEDS ORDERED: BENZOCAINE/MENTHOL LOZENGE PO PRN (06:30)
[2021-01-13] MEDS ORDERED: BACITRACIN 28 GM OINTMENT TP PRN (06:30)
[2021-01-13] MEDS ORDERED: IBUPROFEN 600 MG TABLET PO PRN (06:30)
[2021-01-13] MEDS ORDERED: CloNIDine HCL 0.1 MG TABLET PO PRN (06:30)
[2021-01-13] MEDS ORDERED: OMEPRAZOLE 20 MG CAPSULE PO PRN (06:30)
[2021-01-13] MEDS ORDERED: ALBUTEROL SULFATE HFA 90 MCG/PUFF 8 GM INHALER IH PRN (06:30)
[2021-01-13] MEDS ORDERED: PETROLATUM,WHITE 28 GM JELLY TP PRN (06:30)
[2021-01-13] MEDS: MetFORMIN HCL 500 MG TABLET PO SCH ×2 (07:09→16:54)
[2021-01-13 08:54] VITALS: BP 100/68
[2021-01-13] MEDS: LevETIRAcetam 250 MG TABLET PO SCH ×2 (13:27→16:54)
[2021-01-13 16:26] VITALS: BP 121/80
[2021-01-13] MEDS: GABAPENTIN 400 MG CAPSULE PO SCH (17:00)
[2021-01-14] VITALS (9 sets, daily range): BP systolic 118–145; BP diastolic 75–102
[2021-01-14] MEDS: MetFORMIN HCL 500 MG TABLET PO SCH ×2 (06:40→16:37)
[2021-01-14] MEDS: LevETIRAcetam 250 MG TABLET PO SCH ×3 (08:32→17:00)
[2021-01-14] MEDS: GABAPENTIN 400 MG CAPSULE PO SCH ×4 (08:32→17:00)
[2021-01-14] MEDS: CloZAPine 25 MG TABLET PO SCH ×2 (08:32→09:00)
[2021-01-15 00:35] VITALS: BP 130/86
[2021-01-15] MEDS: MetFORMIN HCL 500 MG TABLET PO SCH ×2 (06:50→16:31)
[2021-01-15 08:10] VITALS: BP 126/86
[2021-01-15] MEDS: LevETIRAcetam 250 MG TABLET PO SCH ×2 (09:00→16:32)
[2021-01-15] MEDS: GABAPENTIN 400 MG CAPSULE PO SCH ×3 (09:00→16:32)
[2021-01-15] MEDS ORDERED: CloZAPine 25 MG TABLET PO SCH ×2 (09:00→21:00)
[2021-01-15] MEDS: HALOPERIDOL 5 MG TABLET PO PRN (09:33)
[2021-01-15] MEDS: MULTIVITAMINS WITH MINERALS, THERAPEUTIC TABLET PO SCH (09:44)
[2021-01-15 16:22] VITALS: BP 113/63
[2021-01-16 00:28] VITALS: BP 118/78
[2021-01-16] MEDS: MetFORMIN HCL 500 MG TABLET PO SCH ×2 (06:56→17:10)
[2021-01-16 08:03] VITALS: BP 149/88
[2021-01-16] MEDS: LevETIRAcetam 250 MG TABLET PO SCH ×2 (08:42→17:00)
[2021-01-16] MEDS: MULTIVITAMINS WITH MINERALS, THERAPEUTIC TABLET PO SCH (08:42)
[2021-01-16] MEDS: GABAPENTIN 400 MG CAPSULE PO SCH ×3 (08:42→17:00)
[2021-01-16] MEDS ORDERED: CloZAPine 25 MG TABLET PO SCH ×2 (09:00→21:00)
[2021-01-16 16:16] VITALS: BP 121/79
[2021-01-17 00:26] VITALS: BP 137/87
[2021-01-17] MEDS: MetFORMIN HCL 500 MG TABLET PO SCH ×2 (07:02→17:29)
[2021-01-17 07:51] LABS: COVID AG,FIA SOURCE NASOPHARYNGEAL
[2021-01-17 08:20] VITALS: BP 126/80
[2021-01-17] MEDS: CloZAPine 25 MG TABLET PO SCH ×2 (09:00→21:00)
[2021-01-17] MEDS: GABAPENTIN 400 MG CAPSULE PO SCH ×3 (09:00→17:00)
[2021-01-17] MEDS: LevETIRAcetam 250 MG TABLET PO SCH ×2 (09:00→17:00)
[2021-01-17] MEDS: MULTIVITAMINS WITH MINERALS, THERAPEUTIC TABLET PO SCH (10:02)
[2021-01-17 16:16] VITALS: BP 155/85
[2021-01-18 00:25] VITALS: BP 145/89
[2021-01-18] MEDS: MetFORMIN HCL 500 MG TABLET PO SCH ×2 (06:35→16:54)
[2021-01-18 07:41] LABS: BASOPHILS % (AUTO) 0.7 % (0.0-2.0); EOSINOPHILS % (AUTO) 0.7 % (1.0-6.0); HEMOGLOBIN 14.6 g/dL (12.0-16.0); LYMPHOCYTES % (AUTO) 28.6 % (22.0-44.0); MEAN CORPUSCULAR HEMOGLOBIN 30.8 pg (26.0-34.0); MEAN CORPUSCULAR HGB CONC 33.8 G/dL (31.0-37.0); MEAN CORPUSCULAR VOLUME 91 fL (80-100); MONOCYTES # (AUTO) 0.5 K/uL (0.1-1.0); MONOCYTES % (AUTO) 6.5 % (2.0-9.0); NEUTROPHILS # (AUTO) 4.5 K/uL (1.8-7.7); NEUTROPHILS % (AUTO) 63.5 % (40.0-70.0); PLATELET COUNT (AUTO) 228 K/uL (150-450); RED BLOOD CELL COUNT(AUTO) 4.73 MIL/uL (4.00-5.20); RED CELL DISTRIBUTION WIDTH 13.2 % (11.5-14.5)
[2021-01-18 08:03] LABS: CHOL/HDL RATIO 2.7 (3.9-5.7); FREE T4 (FREE THYROXINE) 1.23 ng/dL (0.76-1.46); THYROID STIMULATING HORMONE 0.92 uIU/mL (0.36-3.74)
[2021-01-18 08:39] VITALS: BP 109/66
[2021-01-18] MEDS: CloZAPine 25 MG TABLET PO SCH ×2 (09:00→20:28)
[2021-01-18] MEDS: GABAPENTIN 400 MG CAPSULE PO SCH ×3 (09:00→16:58)
[2021-01-18] MEDS: LevETIRAcetam 250 MG TABLET PO SCH ×2 (09:00→16:58)
[2021-01-18] MEDS: MULTIVITAMINS WITH MINERALS, THERAPEUTIC TABLET PO SCH (09:45)
[2021-01-18 16:11] VITALS: BP 118/77
[2021-01-19 00:28] VITALS: BP 145/84
[2021-01-19] MEDS: MetFORMIN HCL 500 MG TABLET PO SCH ×2 (06:56→17:33)
[2021-01-19 08:12] VITALS: BP 106/64
[2021-01-19] MEDS: LevETIRAcetam 250 MG TABLET PO SCH ×2 (08:15→17:00)
[2021-01-19] MEDS: GABAPENTIN 400 MG CAPSULE PO SCH ×3 (08:15→17:00)
[2021-01-19] MEDS: MULTIVITAMINS WITH MINERALS, THERAPEUTIC TABLET PO SCH (08:20)
[2021-01-19] MEDS ORDERED: CloZAPine 25 MG TABLET PO SCH (09:00)
[2021-01-19] MEDS ORDERED: CloZAPine 100 MG TABLET PO SCH (21:00)
[2021-01-20] MEDS: HALOPERIDOL 5 MG TABLET PO PRN (03:49)
[2021-01-20] MEDS: LORazepam 2 MG TABLET PO PRN (03:49)
[2021-01-20 04:07] VITALS: BP 115/62
[2021-01-20] MEDS: MetFORMIN HCL 500 MG TABLET PO SCH ×2 (06:15→17:00)
[2021-01-20] MEDS ORDERED: CloZAPine 25 MG TABLET PO SCH (09:00)
[2021-01-20] MEDS: MULTIVITAMINS WITH MINERALS, THERAPEUTIC TABLET PO SCH (09:57)
[2021-01-20] MEDS: GABAPENTIN 400 MG CAPSULE PO SCH ×3 (09:57→17:00)
[2021-01-20] MEDS: LevETIRAcetam 250 MG TABLET PO SCH ×2 (09:58→17:00)
[2021-01-20] MEDS ORDERED: CloZAPine 100 MG TABLET PO SCH (21:00)
[2021-01-21] MEDS: MetFORMIN HCL 500 MG TABLET PO SCH ×2 (06:52→16:28)
[2021-01-21 08:25] VITALS: BP 113/83
[2021-01-21] MEDS: MULTIVITAMINS WITH MINERALS, THERAPEUTIC TABLET PO SCH (08:56)
[2021-01-21] MEDS: GABAPENTIN 400 MG CAPSULE PO SCH ×3 (08:57→17:00)
[2021-01-21] MEDS: LevETIRAcetam 250 MG TABLET PO SCH ×2 (08:57→17:00)
[2021-01-21] MEDS ORDERED: CloZAPine 25 MG TABLET PO SCH (09:00)
[2021-01-21 16:13] VITALS: BP 106/62
[2021-01-21] MEDS ORDERED: CloZAPine 100 MG TABLET PO SCH (21:00)
[2021-01-22 00:20] VITALS: BP 112/64
[2021-01-22] MEDS: MetFORMIN HCL 500 MG TABLET PO SCH ×2 (06:59→16:39)
[2021-01-22 08:16] VITALS: BP 111/76
[2021-01-22] MEDS: MULTIVITAMINS WITH MINERALS, THERAPEUTIC TABLET PO SCH (10:29)
[2021-01-22] MEDS: CloZAPine 100 MG TABLET PO SCH ×2 (10:29→20:30)
[2021-01-22] MEDS: LevETIRAcetam 250 MG TABLET PO SCH ×2 (10:29→20:23)
[2021-01-22] MEDS: GABAPENTIN 400 MG CAPSULE PO SCH ×3 (10:29→20:23)
[2021-01-22 16:10] VITALS: BP 109/70
[2021-01-23] MEDS: MetFORMIN HCL 500 MG TABLET PO SCH ×2 (06:48→16:28)
[2021-01-23 08:06] LABS: BAND NEUTROPHILS % (MANUAL) 0 % (0-5)
[2021-01-23 08:09] LABS: HEMATOCRIT 42.1 % (36-46); MEAN CORPUSCULAR HEMOGLOBIN 30.4 pg (26.0-34.0); MEAN CORPUSCULAR HGB CONC 33.2 G/dL (31.0-37.0); MEAN CORPUSCULAR VOLUME 92 fL (80-100); PLATELET COUNT (AUTO) 213 K/uL (150-450); RED BLOOD CELL COUNT(AUTO) 4.59 MIL/uL (4.00-5.20)
[2021-01-23 08:26] LABS: ANION GAP 10 mmol/L (8-16); CALCIUM, TOTAL 9.2 mg/dL (8.8-10.5); CARBON DIOXIDE 25 mmol/L (22-29); CHLORIDE 108 mmol/L (98-107); CREATININE 0.39 mg/dL (0.60-1.30); GLOMERULAR FILTR. RATE CALC > 60 mL/min (>60); GLUCOSE,RANDOM 98 mg/dL (70-110); PHOSPHORUS 3.4 mg/dL (2.5-4.9); POTASSIUM 3.8 mmol/L (3.5-5.1); SODIUM SERUM 143 mmol/L (136-145); UREA NITROGEN, BLOOD 17 mg/dL (7-18)
[2021-01-23 08:30] VITALS: BP 120/73
[2021-01-23] MEDS: GABAPENTIN 400 MG CAPSULE PO SCH ×3 (08:35→20:30)
[2021-01-23] MEDS: MULTIVITAMINS WITH MINERALS, THERAPEUTIC TABLET PO SCH (08:35)
[2021-01-23] MEDS: CloZAPine 100 MG TABLET PO SCH ×2 (08:35→20:30)
[2021-01-23] MEDS: LevETIRAcetam 250 MG TABLET PO SCH ×2 (08:35→20:30)
[2021-01-23 10:23] LABS: EOSINOPHILS % (MANUAL) 1 % (1-6); LYMPHOCYTES % (MANUAL) 35 % (22-44); MONOCYTES % (MANUAL) 6 % (2-9); SEGMENTED NEUTROPHILS % 58 % (40-70)
[2021-01-23 16:18] VITALS: BP 100/64
[2021-01-24 01:01] VITALS: BP 105/70
[2021-01-24 06:51] LABS: COVID AG,FIA SOURCE NASOPHARYNGEAL
[2021-01-24] MEDS: MetFORMIN HCL 500 MG TABLET PO SCH ×2 (06:51→16:36)
[2021-01-24 08:24] VITALS: BP 100/61
[2021-01-24] MEDS: LevETIRAcetam 250 MG TABLET PO SCH ×3 (09:00→21:11)
[2021-01-24] MEDS ORDERED: CloZAPine 25 MG TABLET PO SCH (09:00)
[2021-01-24] MEDS: GABAPENTIN 400 MG CAPSULE PO SCH ×3 (09:06→21:11)
[2021-01-24] MEDS: MAGNESIUM OXIDE 400 MG TABLET PO SCH ×3 (09:06→16:36)
[2021-01-24] MEDS: MULTIVITAMINS WITH MINERALS, THERAPEUTIC TABLET PO SCH (09:06)
[2021-01-24 16:16] VITALS: BP 124/73
[2021-01-24] MEDS ORDERED: CloZAPine 100 MG TABLET PO SCH (21:00)
[2021-01-25] MEDS: MetFORMIN HCL 500 MG TABLET PO SCH ×2 (06:41→16:28)
[2021-01-25 07:01] VITALS: BP 132/63
[2021-01-25 08:46] VITALS: BP 129/69
[2021-01-25] MEDS: MAGNESIUM OXIDE 400 MG TABLET PO SCH ×3 (08:52→16:28)
[2021-01-25] MEDS: LevETIRAcetam 250 MG TABLET PO SCH ×2 (08:52→16:28)
[2021-01-25] MEDS: GABAPENTIN 400 MG CAPSULE PO SCH ×3 (08:52→16:28)
[2021-01-25] MEDS: MULTIVITAMINS WITH MINERALS, THERAPEUTIC TABLET PO SCH (08:53)
[2021-01-25] MEDS ORDERED: CloZAPine 25 MG TABLET PO SCH (09:00)
[2021-01-25 16:16] VITALS: BP 120/72
[2021-01-25] MEDS ORDERED: CloZAPine 100 MG TABLET PO SCH (21:00)
[2021-01-26] MEDS: MetFORMIN HCL 500 MG TABLET PO SCH ×2 (06:51→16:54)
[2021-01-26 07:08] VITALS: BP 132/75
[2021-01-26 08:29] LABS: BASOPHILS % (AUTO) 0.5 % (0.0-2.0); EOSINOPHILS % (AUTO) 1.1 % (1.0-6.0); HEMOGLOBIN 13.8 g/dL (12.0-16.0); LYMPHOCYTES # (AUTO) 2.6 K/uL (1.0-4.8); LYMPHOCYTES % (AUTO) 38.2 % (22.0-44.0); MEAN CORPUSCULAR HEMOGLOBIN 30.6 pg (26.0-34.0); MEAN CORPUSCULAR HGB CONC 33.6 G/dL (31.0-37.0); MEAN CORPUSCULAR VOLUME 91 fL (80-100); MONOCYTES # (AUTO) 0.3 K/uL (0.1-1.0); MONOCYTES % (AUTO) 4.8 % (2.0-9.0); NEUTROPHILS # (AUTO) 3.7 K/uL (1.8-7.7); NEUTROPHILS % (AUTO) 55.4 % (40.0-70.0); PLATELET COUNT (AUTO) 226 K/uL (150-450); RED CELL DISTRIBUTION WIDTH 13.1 % (11.5-14.5)
[2021-01-26 08:34] VITALS: BP 132/75
[2021-01-26] MEDS: MAGNESIUM OXIDE 400 MG TABLET PO SCH ×3 (08:45→16:54)
[2021-01-26] MEDS: MULTIVITAMINS WITH MINERALS, THERAPEUTIC TABLET PO SCH (08:45)
[2021-01-26] MEDS: CloZAPine 100 MG TABLET PO SCH ×2 (08:45→20:51)
[2021-01-26] MEDS: LevETIRAcetam 250 MG TABLET PO SCH ×2 (08:45→16:54)
[2021-01-26] MEDS: GABAPENTIN 400 MG CAPSULE PO SCH ×3 (08:45→16:55)
[2021-01-26 16:12] VITALS: BP 128/70
[2021-01-27 05:50] VITALS: BP 106/66
[2021-01-27] MEDS: MetFORMIN HCL 500 MG TABLET PO SCH ×2 (06:20→16:46)
[2021-01-27] MEDS: LevETIRAcetam 250 MG TABLET PO SCH ×2 (08:45→16:46)
[2021-01-27] MEDS: GABAPENTIN 400 MG CAPSULE PO SCH ×4 (08:45→22:08)
[2021-01-27 08:46] VITALS: BP 119/66
[2021-01-27] MEDS: MULTIVITAMINS WITH MINERALS, THERAPEUTIC TABLET PO SCH (08:46)
[2021-01-27] MEDS: MAGNESIUM OXIDE 400 MG TABLET PO SCH ×3 (08:46→16:45)
[2021-01-27] MEDS: CloZAPine 100 MG TABLET PO SCH ×2 (08:46→20:47)
[2021-01-27 16:39] VITALS: BP 99/66
[2021-01-28 00:39] VITALS: BP 105/67
[2021-01-28] MEDS: MetFORMIN HCL 500 MG TABLET PO SCH ×2 (06:23→16:19)
[2021-01-28] MEDS: MAGNESIUM OXIDE 400 MG TABLET PO SCH ×3 (08:36→16:18)
[2021-01-28] MEDS: GABAPENTIN 400 MG CAPSULE PO SCH ×3 (08:36→16:19)
[2021-01-28] MEDS: MULTIVITAMINS WITH MINERALS, THERAPEUTIC TABLET PO SCH (08:36)
[2021-01-28] MEDS: LevETIRAcetam 250 MG TABLET PO SCH ×2 (08:36→16:18)
[2021-01-28] MEDS: CloZAPine 100 MG TABLET PO SCH ×2 (08:36→20:46)
[2021-01-28 08:38] VITALS: BP 105/65
[2021-01-28 16:15] VITALS: BP 135/81
[2021-01-29 03:01] VITALS: BP 118/68
[2021-01-29] MEDS: MetFORMIN HCL 500 MG TABLET PO SCH ×2 (06:22→16:30)
[2021-01-29 08:38] VITALS: BP 118/73
[2021-01-29] MEDS: MULTIVITAMINS WITH MINERALS, THERAPEUTIC TABLET PO SCH (08:42)
[2021-01-29] MEDS: LevETIRAcetam 250 MG TABLET PO SCH ×2 (08:42→16:30)
[2021-01-29] MEDS: MAGNESIUM OXIDE 400 MG TABLET PO SCH ×3 (08:42→16:30)
[2021-01-29] MEDS: CloZAPine 100 MG TABLET PO SCH ×2 (08:42→20:45)
[2021-01-29] MEDS: GABAPENTIN 400 MG CAPSULE PO SCH ×3 (08:43→16:30)
[2021-01-30 00:22] VITALS: BP 103/62
[2021-01-30] MEDS: MetFORMIN HCL 500 MG TABLET PO SCH ×2 (06:05→16:01)
[2021-01-30] MEDS: MAGNESIUM OXIDE 400 MG TABLET PO SCH ×3 (08:26→16:01)
[2021-01-30] MEDS: CloZAPine 100 MG TABLET PO SCH ×2 (08:26→20:13)
[2021-01-30] MEDS: GABAPENTIN 400 MG CAPSULE PO SCH ×3 (08:26→16:01)
[2021-01-30] MEDS: MULTIVITAMINS WITH MINERALS, THERAPEUTIC TABLET PO SCH (08:26)
[2021-01-30] MEDS: LevETIRAcetam 250 MG TABLET PO SCH ×2 (08:26→16:01)
[2021-01-30 08:29] VITALS: BP 119/76
[2021-01-30 16:18] VITALS: BP 116/70
[2021-01-31 00:19] VITALS: BP 102/61
[2021-01-31] MEDS: MetFORMIN HCL 500 MG TABLET PO SCH ×2 (06:40→16:40)
[2021-01-31 07:30] LABS: COVID AG,FIA SOURCE NASAL SWAB
[2021-01-31] MEDS: GABAPENTIN 400 MG CAPSULE PO SCH ×3 (08:33→16:40)
[2021-01-31] MEDS: MAGNESIUM OXIDE 400 MG TABLET PO SCH ×3 (08:33→16:40)
[2021-01-31] MEDS: LevETIRAcetam 250 MG TABLET PO SCH ×2 (08:33→16:40)
[2021-01-31] MEDS: MULTIVITAMINS WITH MINERALS, THERAPEUTIC TABLET PO SCH (08:33)
[2021-01-31] MEDS: CloZAPine 100 MG TABLET PO SCH ×2 (08:33→21:07)
[2021-01-31 08:43] VITALS: BP 105/77
[2021-02-01] MEDS: MetFORMIN HCL 500 MG TABLET PO SCH ×2 (06:31→16:33)
[2021-02-01 07:00] VITALS: BP 123/76
[2021-02-01 08:24] VITALS: BP_SYST 118
[2021-02-01] MEDS: MAGNESIUM OXIDE 400 MG TABLET PO SCH ×3 (08:55→16:33)
[2021-02-01] MEDS: CloZAPine 100 MG TABLET PO SCH ×2 (08:55→20:33)
[2021-02-01] MEDS: LevETIRAcetam 250 MG TABLET PO SCH ×2 (08:55→16:33)
[2021-02-01] MEDS: MULTIVITAMINS WITH MINERALS, THERAPEUTIC TABLET PO SCH (08:56)
[2021-02-01] MEDS: GABAPENTIN 400 MG CAPSULE PO SCH ×3 (08:56→16:33)
[2021-02-01 16:14] VITALS: BP 103/75
[2021-02-02 05:44] VITALS: BP 104/67
[2021-02-02] MEDS: MetFORMIN HCL 500 MG TABLET PO SCH ×2 (06:42→16:36)
[2021-02-02 08:12] VITALS: BP 106/72
[2021-02-02] MEDS: GABAPENTIN 400 MG CAPSULE PO SCH ×3 (08:57→16:36)
[2021-02-02] MEDS: MULTIVITAMINS WITH MINERALS, THERAPEUTIC TABLET PO SCH (08:57)
[2021-02-02] MEDS: LevETIRAcetam 250 MG TABLET PO SCH ×2 (08:58→16:36)
[2021-02-02] MEDS: CloZAPine 100 MG TABLET PO SCH ×2 (08:58→20:37)
[2021-02-02] MEDS: MAGNESIUM OXIDE 400 MG TABLET PO SCH ×3 (08:58→16:36)
[2021-02-02 16:10] VITALS: BP 103/65
[2021-02-03 00:16] VITALS: BP 118/67
[2021-02-03] MEDS: MetFORMIN HCL 500 MG TABLET PO SCH ×2 (06:54→16:02)
[2021-02-03] MEDS: MULTIVITAMINS WITH MINERALS, THERAPEUTIC TABLET PO SCH (08:20)
[2021-02-03] MEDS: MAGNESIUM OXIDE 400 MG TABLET PO SCH ×3 (08:21→16:02)
[2021-02-03] MEDS: LevETIRAcetam 250 MG TABLET PO SCH ×2 (08:21→16:02)
[2021-02-03] MEDS: CloZAPine 100 MG TABLET PO SCH ×2 (08:23→20:01)
[2021-02-03] MEDS: GABAPENTIN 400 MG CAPSULE PO SCH ×3 (08:23→16:02)
[2021-02-03 08:34] VITALS: BP 123/55
[2021-02-03 16:03] VITALS: BP 119/79
[2021-02-04 05:45] VITALS: BP 102/72
[2021-02-04] MEDS: MetFORMIN HCL 500 MG TABLET PO SCH ×2 (06:45→17:05)
[2021-02-04] MEDS: MAGNESIUM OXIDE 400 MG TABLET PO SCH ×3 (08:06→17:05)
[2021-02-04] MEDS: LevETIRAcetam 250 MG TABLET PO SCH ×2 (08:06→17:05)
[2021-02-04] MEDS: CloZAPine 100 MG TABLET PO SCH ×2 (08:06→20:18)
[2021-02-04] MEDS: MULTIVITAMINS WITH MINERALS, THERAPEUTIC TABLET PO SCH (08:06)
[2021-02-04] MEDS: GABAPENTIN 400 MG CAPSULE PO SCH ×3 (08:06→17:05)
[2021-02-04 08:33] VITALS: BP 133/88
[2021-02-04 16:17] VITALS: BP 104/80
[2021-02-05 02:00] VITALS: BP 121/78
[2021-02-05] MEDS: MetFORMIN HCL 500 MG TABLET PO SCH ×2 (06:52→16:24)
[2021-02-05 07:13] LABS: BASOPHILS % (AUTO) 0.6 % (0.0-2.0); EOSINOPHILS % (AUTO) 0.9 % (1.0-6.0); HEMATOCRIT 44.1 % (36-46); HEMOGLOBIN 14.7 g/dL (12.0-16.0); LYMPHOCYTES % (AUTO) 35.4 % (22.0-44.0); MEAN CORPUSCULAR HEMOGLOBIN 30.5 pg (26.0-34.0); MEAN CORPUSCULAR HGB CONC 33.3 G/dL (31.0-37.0); MEAN CORPUSCULAR VOLUME 91 fL (80-100); MONOCYTES # (AUTO) 0.4 K/uL (0.1-1.0); MONOCYTES % (AUTO) 4.8 % (2.0-9.0); NEUTROPHILS % (AUTO) 58.3 % (40.0-70.0); PLATELET COUNT (AUTO) 247 K/uL (150-450); RED BLOOD CELL COUNT(AUTO) 4.82 MIL/uL (4.00-5.20); RED CELL DISTRIBUTION WIDTH 13.2 % (11.5-14.5)
[2021-02-05 07:43] LABS: ALANINE AMINOTRANSFERASE 25 U/L (12-78); ALBUMIN 3.5 g/dL (3.4-5.0); ALKALINE PHOSPHATASE 87 U/L (46-116); ANION GAP 11 mmol/L (8-16); ASPARTATE AMINOTRANSFERASE 17 U/L (15-37); BILIRUBIN,TOTAL 0.4 mg/dL (0.1-1.0); CALCIUM, TOTAL 9.1 mg/dL (8.8-10.5); CARBON DIOXIDE 27 mmol/L (22-29); CHLORIDE 107 mmol/L (98-107); CREATININE 0.52 mg/dL (0.60-1.30); GLOMERULAR FILTR. RATE CALC > 60 mL/min (>60); GLUCOSE,RANDOM 94 mg/dL (70-110); POTASSIUM 4.2 mmol/L (3.5-5.1); SODIUM SERUM 145 mmol/L (136-145); TOTAL PROTEIN, SERUM 6.6 g/dL (6.4-8.2); UREA NITROGEN, BLOOD 21 mg/dL (7-18)
[2021-02-05 08:05] VITALS: BP 104/62
[2021-02-05] MEDS: MAGNESIUM OXIDE 400 MG TABLET PO SCH ×3 (08:13→16:24)
[2021-02-05] MEDS: MULTIVITAMINS WITH MINERALS, THERAPEUTIC TABLET PO SCH (08:13)
[2021-02-05] MEDS: GABAPENTIN 400 MG CAPSULE PO SCH ×3 (08:13→16:23)
[2021-02-05] MEDS: LevETIRAcetam 250 MG TABLET PO SCH ×2 (08:13→16:23)
[2021-02-05] MEDS: CloZAPine 100 MG TABLET PO SCH ×2 (08:13→20:01)
[2021-02-05 16:12] VITALS: BP 106/69
[2021-02-06 00:42] VITALS: BP 109/65
[2021-02-06] MEDS: MetFORMIN HCL 500 MG TABLET PO SCH ×2 (06:55→16:03)
[2021-02-06] MEDS: MAGNESIUM OXIDE 400 MG TABLET PO SCH ×3 (08:11→16:03)
[2021-02-06] MEDS: MULTIVITAMINS WITH MINERALS, THERAPEUTIC TABLET PO SCH (08:11)
[2021-02-06] MEDS: GABAPENTIN 400 MG CAPSULE PO SCH ×3 (08:11→16:03)
[2021-02-06] MEDS: LevETIRAcetam 250 MG TABLET PO SCH ×2 (08:11→16:03)
[2021-02-06] MEDS: CloZAPine 100 MG TABLET PO SCH ×2 (08:11→20:27)
[2021-02-06 08:17] VITALS: BP 125/85
[2021-02-06 16:17] VITALS: BP 114/66
[2021-02-06 23:42] VITALS: BP 123/60
[2021-02-07 00:17] VITALS: BP 123/60
[2021-02-07] MEDS: MetFORMIN HCL 500 MG TABLET PO SCH ×2 (06:54→17:46)
[2021-02-07 07:47] LABS: COVID AG,FIA SOURCE NASOPHARYNGEAL
[2021-02-07] MEDS: MULTIVITAMINS WITH MINERALS, THERAPEUTIC TABLET PO SCH (08:04)
[2021-02-07] MEDS: LevETIRAcetam 250 MG TABLET PO SCH ×2 (08:04→17:46)
[2021-02-07] MEDS: GABAPENTIN 400 MG CAPSULE PO SCH ×3 (08:05→17:46)
[2021-02-07] MEDS: MAGNESIUM OXIDE 400 MG TABLET PO SCH ×3 (08:05→17:46)
[2021-02-07] MEDS: CloZAPine 100 MG TABLET PO SCH ×2 (08:05→20:36)
[2021-02-07 08:14] VITALS: BP 101/66
[2021-02-07 16:37] VITALS: BP 107/70
[2021-02-08 05:20] VITALS: BP 108/64
[2021-02-08] MEDS: MetFORMIN HCL 500 MG TABLET PO SCH ×2 (06:27→16:55)
[2021-02-08 08:23] VITALS: BP 97/76
[2021-02-08 08:58] LABS: APPEARANCE,URINE CLOUDY (CLEAR); BILIRUBIN,URINE NEGATIVE (NEGATIVE); GLUCOSE, URINE (UA) NEGATIVE (NEGATIVE); KETONES,URINE TRACE mg/dL (NEGATIVE); LEUKOCYTE ESTERASE ,URINE LARGE (NEGATIVE); NITRATE,URINE NEGATIVE (NEGATIVE); OCCULT BLOOD,URINE NEGATIVE (NEGATIVE); PROTEIN,URINE TRACE (NEGATIVE); UROBILINOGEN,URINE 0.2 mg/dL (<=1.0)
[2021-02-08] MEDS: MULTIVITAMINS WITH MINERALS, THERAPEUTIC TABLET PO SCH (09:09)
[2021-02-08] MEDS: LevETIRAcetam 250 MG TABLET PO SCH ×2 (09:09→16:55)
[2021-02-08] MEDS: CloZAPine 100 MG TABLET PO SCH ×2 (09:09→20:03)
[2021-02-08] MEDS: MAGNESIUM OXIDE 400 MG TABLET PO SCH ×3 (09:10→16:55)
[2021-02-08] MEDS: GABAPENTIN 400 MG CAPSULE PO SCH ×3 (09:10→16:55)
[2021-02-08 09:13] LABS: BACTERIA,URINE Few /HPF (None Seen); RBC,URINE None Seen /HPF (0-2)
[2021-02-08 15:57] VITALS: BP 106/66
[2021-02-08 16:00] VITALS: BP 106/66
[2021-02-09 01:52] VITALS: BP 126/73
[2021-02-09] MEDS: MetFORMIN HCL 500 MG TABLET PO SCH ×2 (06:28→17:08)
[2021-02-09 08:02] VITALS: BP 110/72
[2021-02-09] MEDS: LevETIRAcetam 250 MG TABLET PO SCH ×2 (08:24→17:08)
[2021-02-09] MEDS: MAGNESIUM OXIDE 400 MG TABLET PO SCH ×3 (08:24→17:08)
[2021-02-09] MEDS: CloZAPine 100 MG TABLET PO SCH ×2 (08:24→20:10)
[2021-02-09] MEDS: MULTIVITAMINS WITH MINERALS, THERAPEUTIC TABLET PO SCH (08:24)
[2021-02-09] MEDS: GABAPENTIN 400 MG CAPSULE PO SCH ×3 (08:24→17:07)
[2021-02-09 16:03] VITALS: BP 100/62
[2021-02-10 00:16] VITALS: BP 99/69
[2021-02-10] MEDS: MetFORMIN HCL 500 MG TABLET PO SCH ×2 (07:09→16:54)
[2021-02-10 08:01] VITALS: BP 106/63
[2021-02-10] MEDS: LevETIRAcetam 250 MG TABLET PO SCH ×2 (08:38→16:53)
[2021-02-10] MEDS: MULTIVITAMINS WITH MINERALS, THERAPEUTIC TABLET PO SCH (08:38)
[2021-02-10] MEDS: GABAPENTIN 400 MG CAPSULE PO SCH ×3 (08:41→16:54)
[2021-02-10] MEDS: MAGNESIUM OXIDE 400 MG TABLET PO SCH ×3 (08:41→16:54)
[2021-02-10] MEDS: CloZAPine 100 MG TABLET PO SCH ×2 (08:43→20:02)
[2021-02-10 16:01] VITALS: BP 103/66
[2021-02-11 00:06] VITALS: BP 103/70
[2021-02-11] MEDS: MetFORMIN HCL 500 MG TABLET PO SCH (06:48)
[2021-02-11] MEDS: MAGNESIUM OXIDE 400 MG TABLET PO SCH ×2 (08:02→12:26)
[2021-02-11] MEDS: CloZAPine 100 MG TABLET PO SCH (08:02)
[2021-02-11] MEDS: LevETIRAcetam 250 MG TABLET PO SCH (08:02)
[2021-02-11] MEDS: GABAPENTIN 400 MG CAPSULE PO SCH ×2 (08:03→12:26)
[2021-02-11] MEDS: MULTIVITAMINS WITH MINERALS, THERAPEUTIC TABLET PO SCH (08:03)
[2021-02-11 08:04] VITALS: BP 102/70
[2021-02-11 10:51] LABS: GLUCOMETER DEV NAME(LOC) POC.BV
[2021-02-11] MEDS ORDERED: MAGN400T7 PO (11:18)
== END 2021-02-11 15:13 | DRG 885 ==
LOC: EMS 13:22 → B2X 16:20
PROVIDERS: ADMIT Psychiatry & Neurology Psychiatry; ATTEND Psychiatry & Neurology Psychiatry
DX: F20.0 Paranoid schizophrenia (principal); E11.9 Type 2 diabetes mellitus without complications; D69.6 Thrombocytopenia, unspecified; F94.0 Selective mutism; G47.00 Insomnia, unspecified; G40.909 Epilepsy, unspecified, not intractable, without status epilepticus; K59.00 Constipation, unspecified; Z20.822 Contact with and (suspected) exposure to COVID-19; Z87.891 Personal history of nicotine dependence; Z79.899 Other long term (current) drug therapy
CPT/HCPCS: 80048; 80053; 80061; 81001; 82948; 82962; 83735; 84100; 84439; 84443; 85007; 85025; 85027; 87086; 99285; G0480; G0482

== ENCOUNTER 2024-07-21 17:56 | Inpatient (IN) | payer MEDICARE, MEDICAID ==
[~2024-07-21] VITALS: Ht 165.1 cm; Wt 52.8 kg
[~2024-07-21 17:56] MED LIST changes: +CLOZ100T12 PO; -CLOZ100T32 PO; -DSS100 PO; -LEVE250T55 PO; +LEVE250T81 PO; +MAGN400T7 PO; +METF-1211 PO; -METF-960 PO; -MULT-29 PO
[2024-07-21 18:10] VITALS: O2SAT 95
[2024-07-21 19:51] LABS: COVID AG,FIA SOURCE NASAL SWAB
[2024-07-21 20:17] LABS: BASOPHILS % (AUTO) 0.5 % (0.0-2.0); EOSINOPHILS % (AUTO) 1.2 % (1.0-6.0); HEMATOCRIT 36.6 % (36-46); HEMOGLOBIN 12.1 g/dL (12.0-16.0); LYMPHOCYTES # (AUTO) 1.6 K/uL (1.0-4.8); LYMPHOCYTES % (AUTO) 20.4 % (22.0-44.0); MEAN CORPUSCULAR HEMOGLOBIN 29.8 pg (26.0-34.0); MEAN CORPUSCULAR HGB CONC 32.9 G/dL (31.0-37.0); MEAN CORPUSCULAR VOLUME 91 fL (80-100); MONOCYTES # (AUTO) 0.5 K/uL (0.1-1.0); MONOCYTES % (AUTO) 6.2 % (2.0-9.0); NEUTROPHILS # (AUTO) 5.7 K/uL (1.8-7.7); NEUTROPHILS % (AUTO) 71.7 % (40.0-70.0); PLATELET COUNT (AUTO) 200 K/uL (150-450); RED BLOOD CELL COUNT(AUTO) 4.04 MIL/uL (4.00-5.20); RED CELL DISTRIBUTION WIDTH 13.5 % (11.5-14.5)
[2024-07-21 20:28] LABS: SARS-COV2 (COVID) ANTIGEN,FIA Negative (Negative)
[2024-07-21 20:41] LABS: ANION GAP 2 mmol/L (8-16); CALCIUM, TOTAL 8.7 mg/dL (8.8-10.5); CARBON DIOXIDE 31 mmol/L (22-29); CHLORIDE 107 mmol/L (98-107); CREATININE 0.64 mg/dL (0.60-1.30); GLOMERULAR FILTR. RATE CALC > 60 mL/min (>60); GLUCOSE,RANDOM 157 mg/dL (70-110); SODIUM SERUM 140 mmol/L (136-145); UREA NITROGEN, BLOOD 19 mg/dL (7-18)
[2024-07-21 20:49] LABS: ALCOHOL, BLOOD (SERUM) < 3 mg/dL (0-10)
[2024-07-21 21:46] LABS: APPEARANCE,URINE CLEAR (CLEAR); BILIRUBIN,URINE NEGATIVE (NEGATIVE); COLOR,URINE LIGHT YELLOW (YELLOW); GLUCOSE, URINE (UA) NEGATIVE (NEGATIVE); KETONES,URINE NEGATIVE (NEGATIVE); LEUKOCYTE ESTERASE ,URINE NEGATIVE (NEGATIVE); NITRATE,URINE NEGATIVE (NEGATIVE); OCCULT BLOOD,URINE NEGATIVE (NEGATIVE); PH,URINE 6.5 (5.0-8.0); PH,URINE DRUG SCREEN 6.5 (5.0-8.0); PROTEIN,URINE NEGATIVE (NEGATIVE); SPECIFIC GRAVITIY, URINE 1.023 (1.003-1.030); UROBILINOGEN,URINE <=1.0 mg/dL (<=1.0)
[2024-07-21 21:54] LABS: AMPHET/METH SCREEN,URINE NEGATIVE (NEGATIVE); BARBITURATE SCREEN, URINE NEGATIVE (NEGATIVE); BENZODIAZEPINES SCREEN,URINE NEGATIVE (NEGATIVE); CANNABINOID SCREEN,URINE NEGATIVE (NEGATIVE); COCAINE SCREEN,URINE NEGATIVE (NEGATIVE); METHADONE SCREEN, URINE NEGATIVE (NEGATIVE); OPIATE SCREEN,URINE NEGATIVE (NEGATIVE); PHENCYCLIDINE SCREEN,URINE NEGATIVE (NEGATIVE)
[2024-07-21 21:57] LABS: ALCOHOL, URINE DRUG SCREEN NEGATIVE (NEGATIVE)
[2024-07-22 00:36] LABS: GLUCOMETER DEV NAME(LOC) BV2S.; GLUCOSE,POINT OF CARE 147 MG/DL (70-110)
[2024-07-22] MEDS: ZOLPIDEM TARTRATE 10 MG TABLET PO PRN (01:04)
[2024-07-22 01:17] VITALS: BP 114/84; PULSE 86; RESP 18; TEMP 97.8; O2SAT 97
[2024-07-22] MEDS ORDERED: ONDANSETRON 4 MG TABLET PO PRN ×2 (07:00→15:15)
[2024-07-22] MEDS ORDERED: ALBUTEROL SULFATE HFA 90 MCG/PUFF 8 GM INHALER IH PRN ×2 (07:00→15:15)
[2024-07-22] MEDS ORDERED: NICOTINE 14 MG/24 HOUR PATCH TD PRN ×2 (07:00→15:15)
[2024-07-22] MEDS ORDERED: MAG HYDROX/ALUMINUM HYD/SIMETH ES 30 ML SUSPENSION UDCUP PO PRN ×2 (07:00→15:15)
[2024-07-22] MEDS ORDERED: ACETAMINOPHEN 325 MG TABLET PO PRN ×2 (07:00→15:15)
[2024-07-22] MEDS ORDERED: IBUPROFEN 400 MG TABLET PO PRN (07:00)
[2024-07-22] MEDS ORDERED: MAGNESIUM HYDROXIDE SUSPENSION 30 ML UDCUP PO PRN ×2 (07:00→15:15)
[2024-07-22] MEDS ORDERED: GuaiFENesin/D-METHORPHAN [SUGAR-FREE] 200-20MG/10 ML SYRUP UDCUP PO PRN ×2 (07:00→15:15)
[2024-07-22] MEDS ORDERED: LOPERAMIDE HCL 2 MG CAPSULE PO PRN ×2 (07:00→15:15)
[2024-07-22] MEDS ORDERED: CloNIDine HCL 0.1 MG TABLET PO PRN ×2 (07:00→15:15)
[2024-07-22] MEDS ORDERED: DOCUSATE SODIUM 100 MG CAPSULE PO PRN (07:00)
[2024-07-22] MEDS ORDERED: PETROLATUM,WHITE 28 GM JELLY TP PRN ×2 (07:00→15:15)
[2024-07-22 09:00] VITALS: BP 126/71; PULSE 84; RESP 16; TEMP 97.7; O2SAT 95
[2024-07-22 09:15] LABS: HEMOGLOBIN A1C 6.2 % (3.8-5.6)
[2024-07-22 09:21] LABS: CHOL/HDL RATIO 1.9 (3.9-5.7); FREE T4 (FREE THYROXINE) 1.26 ng/dL (0.76-1.46); THYROID STIMULATING HORMONE 1.28 uIU/mL (0.36-3.74)
[2024-07-22] MEDS ORDERED: PALIPERIDONE PALMITATE 234 MG/1.5 ML SYRINGE IM ONE (10:00)
[2024-07-22] MEDS: HALOPERIDOL 10 MG TABLET PO SCH (10:07)
[2024-07-22] MEDS: LORazepam 2 MG TABLET PO PRN (13:31)
[2024-07-22] MEDS: MetFORMIN HCL 500 MG TABLET PO SCH (16:58)
[2024-07-22] MEDS: LevETIRAcetam 250 MG TABLET PO SCH (17:00)
[2024-07-22] MEDS: MEMANTINE HCL 5 MG TABLET PO SCH (17:09)
[2024-07-22] MEDS: LevETIRAcetam 500 MG TABLET PO ONE (20:33)
[2024-07-22] MEDS: DOCUSATE SODIUM 100 MG CAPSULE PO PRN (22:21)
[2024-07-23 08:14] VITALS: BP 111/71; PULSE 85; RESP 18; TEMP 97.8; O2SAT 98
[2024-07-23 09:07] LABS: THYROID STIMULATING HORMONE 1.13 uIU/mL (0.36-3.74)
[2024-07-23] MEDS: IBUPROFEN 400 MG TABLET PO PRN (09:14)
[2024-07-23 09:37] LABS: HEMOGLOBIN A1C 6.3 % (3.8-5.6)
[2024-07-23 09:55] LABS: APPEARANCE,URINE TURBID (CLEAR); BILIRUBIN,URINE NEGATIVE (NEGATIVE); COLOR,URINE YELLOW (YELLOW); GLUCOSE, URINE (UA) NEGATIVE (NEGATIVE); KETONES,URINE NEGATIVE (NEGATIVE); LEUKOCYTE ESTERASE ,URINE MODERATE (NEGATIVE); NITRATE,URINE NEGATIVE (NEGATIVE); OCCULT BLOOD,URINE NEGATIVE (NEGATIVE); PH,URINE 5.5 (5.0-8.0); PH,URINE DRUG SCREEN 5.5 (5.0-8.0); PROTEIN,URINE TRACE mg/dL (NEGATIVE); UROBILINOGEN,URINE <=1.0 mg/dL (<=1.0)
[2024-07-23 10:02] LABS: ALCOHOL, URINE DRUG SCREEN NEGATIVE (NEGATIVE); AMPHET/METH SCREEN,URINE NEGATIVE (NEGATIVE); BARBITURATE SCREEN, URINE NEGATIVE (NEGATIVE); BENZODIAZEPINES SCREEN,URINE NEGATIVE (NEGATIVE); CANNABINOID SCREEN,URINE NEGATIVE (NEGATIVE); COCAINE SCREEN,URINE NEGATIVE (NEGATIVE); METHADONE SCREEN, URINE NEGATIVE (NEGATIVE); OPIATE SCREEN,URINE NEGATIVE (NEGATIVE); PHENCYCLIDINE SCREEN,URINE NEGATIVE (NEGATIVE)
[2024-07-23 10:38] LABS: BACTERIA,URINE Few /HPF (None Seen); CALCIUM OXALATE CRYSTALS,UR Few /LPF (None Seen); RBC,URINE None Seen /HPF (0-2); SQUAMOUS EPITHELIAL CELL,UR Few /LPF (None Seen)
[2024-07-23 11:31] LABS: GLUCOMETER DEV NAME(LOC) BV2S.; GLUCOSE,POINT OF CARE 102 MG/DL (70-110)
[2024-07-23 21:25] VITALS: BP 117/70; PULSE 80; RESP 16; TEMP 97.5; O2SAT 98
[2024-07-24 08:26] VITALS: BP 101/68; PULSE 91; RESP 16; TEMP 97.4; O2SAT 96
[2024-07-24 20:00] VITALS: BP 100/60; PULSE 71; RESP 17; TEMP 97.6; O2SAT 97
[2024-07-25 09:04] VITALS: RESP 18
[2024-07-25] MEDS: INFLUENZA VIRUS VACCINE TVS (6MO+) 2024-25/PF 45 MCG/0.5 ML SYRINGE IM. ONE (09:31)
[2024-07-25] MEDS: PNEUMOCOCCAL VACCINE POLYVALENT 0.5 ML SYRINGE [PPSV23] IM. ONE (09:31)
[2024-07-25 20:45] VITALS: RESP 18
[2024-07-26 08:28] VITALS: BP 128/72; PULSE 89; RESP 16; TEMP 97.2
[2024-07-26 22:58] VITALS: BP 104/60; PULSE 87; RESP 16; TEMP 98.6; O2SAT 100
[2024-07-27 08:14] VITALS: BP 109/77; PULSE 88; RESP 16; TEMP 97.7; O2SAT 98
[2024-07-27 20:19] VITALS: BP 112/66; PULSE 82; RESP 18; TEMP 97.9
[2024-07-28] MEDS: HALOPERIDOL 5 MG TABLET PO PRN (03:43)
[2024-07-28 13:23] VITALS: RESP 18
[2024-07-28 20:17] VITALS: BP 110/77; PULSE 90; RESP 18; TEMP 97.9; O2SAT 99
[2024-07-29 08:33] VITALS: BP 101/67; PULSE 86; RESP 17; TEMP 98; O2SAT 98
[2024-07-29] MEDS ORDERED: MEMA5TAB41 PO (11:54)
== END 2024-07-29 19:45 | DRG 885 ==
LOC: EMS 17:56 → B2S 22:54 → B2X 07-23 18:50
PROVIDERS: ADMIT Psychiatry & Neurology Child & Adolescent Psychiatry; ATTEND Psychiatry & Neurology Child & Adolescent Psychiatry
PROC: GZHZZZZ Group Psychotherapy (ICD-10-PCS; principal; 2024-07-22)
PROC: GZ56ZZZ Individual Psychotherapy, Supportive (ICD-10-PCS; 2024-07-22)
PROC: GZ52ZZZ Individual Psychotherapy, Cognitive (ICD-10-PCS; 2024-07-22)
DX: F25.0 Schizoaffective disorder, bipolar type (principal); G47.00 Insomnia, unspecified; E11.9 Type 2 diabetes mellitus without complications; G40.909 Epilepsy, unspecified, not intractable, without status epilepticus; Z20.822 Contact with and (suspected) exposure to COVID-19; F17.210 Nicotine dependence, cigarettes, uncomplicated; F03.90 Unspecified dementia, unspecified severity, without behavioral disturbance, psychotic disturbance, mood disturbance, and anxiety; Z79.899 Other long term (current) drug therapy
CPT/HCPCS: 80048; 80061; 80307; 81001; 81003; 82962; 83036; 84439; 84443; 85025; 87081; 99285; G0480

== ENCOUNTER 2024-09-22 09:49 | Inpatient (IN) | payer MEDICARE, MEDICAID ==
[~2024-09-22] VITALS: Ht 165.1 cm; Wt 51.7 kg
[~2024-09-22 09:49] MED LIST changes: -CLOZ100T12 PO; -GABA-1201 PO; -MAGN400T7 PO; +MEMA5TAB41 PO
[2024-09-22] MEDS ORDERED: ZOLPIDEM TARTRATE 10 MG TABLET PO PRN (12:15)
[2024-09-22 13:23] LABS: COVID AG,FIA SOURCE NASAL SWAB
[2024-09-22 14:52] LABS: SARS-COV2 (COVID) ANTIGEN,FIA Negative (Negative)
[2024-09-22 14:53] LABS: INFLUENZA TYPE A NEGATIVE FOR TYPE A (NEGATIVE); INFLUENZA TYPE B NEGATIVE FOR TYPE B (NEGATIVE)
[2024-09-22 16:03] LABS: BASOPHILS % (AUTO) 0.7 % (0.0-2.0); EOSINOPHILS % (AUTO) 1.1 % (1.0-6.0); HEMATOCRIT 35.5 % (36-46); HEMOGLOBIN 11.6 g/dL (12.0-16.0); LYMPHOCYTES # (AUTO) 1.2 K/uL (1.0-4.8); LYMPHOCYTES % (AUTO) 18.2 % (22.0-44.0); MEAN CORPUSCULAR HEMOGLOBIN 29.9 pg (26.0-34.0); MEAN CORPUSCULAR HGB CONC 32.7 G/dL (31.0-37.0); MEAN CORPUSCULAR VOLUME 92 fL (80-100); MONOCYTES # (AUTO) 0.6 K/uL (0.1-1.0); MONOCYTES % (AUTO) 8.5 % (2.0-9.0); NEUTROPHILS # (AUTO) 4.8 K/uL (1.8-7.7); NEUTROPHILS % (AUTO) 71.5 % (40.0-70.0); PLATELET COUNT (AUTO) 195 K/uL (150-450); RED BLOOD CELL COUNT(AUTO) 3.88 MIL/uL (4.00-5.20); RED CELL DISTRIBUTION WIDTH 15.2 % (11.5-14.5); WHITE BLOOD COUNT (AUTO) 6.7 K/uL (4.5-11.0)
[2024-09-22 16:11] LABS: ANION GAP 2 mmol/L (8-16); CALCIUM, TOTAL 8.8 mg/dL (8.8-10.5); CARBON DIOXIDE 31 mmol/L (22-29); CHLORIDE 109 mmol/L (98-107); CREATININE 0.47 mg/dL (0.60-1.30); GLOMERULAR FILTR. RATE CALC > 60 mL/min (>60); GLUCOSE,RANDOM 91 mg/dL (70-110); POTASSIUM 3.5 mmol/L (3.5-5.1); SODIUM SERUM 142 mmol/L (136-145); UREA NITROGEN, BLOOD 18 mg/dL (7-18)
[2024-09-22 16:17] LABS: ALCOHOL, BLOOD (SERUM) < 3 mg/dL (0-10)
[2024-09-22 17:42] LABS: APPEARANCE,URINE CLEAR (CLEAR); BILIRUBIN,URINE NEGATIVE (NEGATIVE); COLOR,URINE YELLOW (YELLOW); GLUCOSE, URINE (UA) NEGATIVE (NEGATIVE); KETONES,URINE NEGATIVE (NEGATIVE); LEUKOCYTE ESTERASE ,URINE LARGE (NEGATIVE); NITRATE,URINE NEGATIVE (NEGATIVE); OCCULT BLOOD,URINE TRACE (NEGATIVE); PH,URINE 5.5 (5.0-8.0); PH,URINE DRUG SCREEN 5.5 (5.0-8.0); PROTEIN,URINE 30-70 mg/dL (NEGATIVE); UROBILINOGEN,URINE <=1.0 mg/dL (<=1.0)
[2024-09-22 17:49] LABS: ALCOHOL, URINE DRUG SCREEN NEGATIVE (NEGATIVE); AMPHET/METH SCREEN,URINE NEGATIVE (NEGATIVE); BARBITURATE SCREEN, URINE NEGATIVE (NEGATIVE); BENZODIAZEPINES SCREEN,URINE NEGATIVE (NEGATIVE); CANNABINOID SCREEN,URINE NEGATIVE (NEGATIVE); COCAINE SCREEN,URINE NEGATIVE (NEGATIVE); METHADONE SCREEN, URINE NEGATIVE (NEGATIVE); OPIATE SCREEN,URINE NEGATIVE (NEGATIVE); PHENCYCLIDINE SCREEN,URINE NEGATIVE (NEGATIVE)
[2024-09-22 17:52] LABS: BACTERIA,URINE Few /HPF (None Seen); RBC,URINE 0-2 /HPF (0-2); WBC,URINE 0-2 /HPF (0-5)
[2024-09-22 19:06] VITALS: O2SAT 99
[2024-09-23] MEDS: MEMANTINE HCL 5 MG TABLET PO SCH (08:36)
[2024-09-23] MEDS: PALIPERIDONE PALMITATE 234 MG/1.5 ML SYRINGE IM ONE (12:45)
[2024-09-23] MEDS: CloZAPine 100 MG TABLET PO SCH (13:00)
[2024-09-23] MEDS ORDERED: LOPERAMIDE HCL 2 MG CAPSULE PO PRN (15:00)
[2024-09-23] MEDS ORDERED: ACETAMINOPHEN 325 MG TABLET PO PRN (15:00)
[2024-09-23] MEDS ORDERED: CloNIDine HCL 0.1 MG TABLET PO PRN (15:00)
[2024-09-23] MEDS ORDERED: IBUPROFEN 400 MG TABLET PO PRN (15:00)
[2024-09-23] MEDS ORDERED: DOCUSATE SODIUM 100 MG CAPSULE PO PRN (15:00)
[2024-09-23] MEDS ORDERED: ALBUTEROL SULFATE HFA 90 MCG/PUFF 8 GM INHALER IH PRN (15:00)
[2024-09-23] MEDS ORDERED: GuaiFENesin/D-METHORPHAN [SUGAR-FREE] 200-20MG/10 ML SYRUP UDCUP PO PRN (15:00)
[2024-09-23] MEDS ORDERED: MAGNESIUM HYDROXIDE SUSPENSION 30 ML UDCUP PO PRN (15:00)
[2024-09-23] MEDS ORDERED: NICOTINE 14 MG/24 HOUR PATCH TD PRN (15:00)
[2024-09-23] MEDS ORDERED: PETROLATUM,WHITE 28 GM JELLY TP PRN (15:00)
[2024-09-23] MEDS ORDERED: ONDANSETRON 4 MG TABLET PO PRN (15:00)
[2024-09-23] MEDS ORDERED: MAG HYDROX/ALUMINUM HYD/SIMETH ES 30 ML SUSPENSION UDCUP PO PRN (15:00)
[2024-09-23] MEDS: MetFORMIN HCL 500 MG TABLET PO SCH (16:32)
[2024-09-23] MEDS: LevETIRAcetam 250 MG TABLET PO SCH (16:32)
[2024-09-23] MEDS ORDERED: MetFORMIN HCL 500 MG TABLET PO SCH (17:00)
[2024-09-23 20:05] VITALS: RESP 18
[2024-09-23 20:06] VITALS: RESP 18
[2024-09-24] MEDS: MEMANTINE HCL 5 MG TABLET PO SCH (08:05)
[2024-09-24 08:20] VITALS: RESP 16
[2024-09-24 09:30] VITALS: RESP 18
[2024-09-24] MEDS: HALOPERIDOL 5 MG TABLET PO PRN (12:00)
[2024-09-24] MEDS: LORazepam 2 MG TABLET PO PRN (12:00)
[2024-09-24 18:42] VITALS: RESP 18
[2024-09-24 19:00] VITALS: BP 154/84; PULSE 56; RESP 16; O2SAT 98
[2024-09-25 08:23] VITALS: RESP 17
[2024-09-26 20:59] VITALS: RESP 17; TEMP 97.9
[2024-09-27 23:38] VITALS: RESP 17
[2024-09-28 08:13] VITALS: BP 133/79; PULSE 90; RESP 16; TEMP 98.6; O2SAT 97
[2024-09-28 20:14] VITALS: BP 115/72; PULSE 102; RESP 18; TEMP 97.6; O2SAT 98
[2024-09-29 20:07] VITALS: PULSE 100; RESP 16; TEMP 97.6; O2SAT 99
[2024-10-01 08:14] VITALS: BP 104/61; PULSE 91; RESP 18; TEMP 98.2; O2SAT 99
[2024-10-01] MEDS ORDERED: PALI234D IM (11:24)
[2024-10-01] MEDS ORDERED: CLOZ100T61 PO (11:24)
[2024-10-21] MEDS ORDERED: PALIPERIDONE PALMITATE 234 MG/1.5 ML SYRINGE IM SCH (09:00)
== END 2024-10-01 16:28 | DRG 885 ==
LOC: EMS 09:50 → B2X 09-23 00:17
PROVIDERS: ADMIT Psychiatry & Neurology Child & Adolescent Psychiatry; ATTEND Psychiatry & Neurology Child & Adolescent Psychiatry
PROC: GZ52ZZZ Individual Psychotherapy, Cognitive (ICD-10-PCS; principal; 2024-09-23)
PROC: GZ56ZZZ Individual Psychotherapy, Supportive (ICD-10-PCS; 2024-09-23)
DX: F20.0 Paranoid schizophrenia (principal); E43 Unspecified severe protein-calorie malnutrition; F03.93 Unspecified dementia, unspecified severity, with mood disturbance; Z68.1 Body mass index [BMI] 19.9 or less, adult; F03.94 Unspecified dementia, unspecified severity, with anxiety; Z20.822 Contact with and (suspected) exposure to COVID-19; F31.9 Bipolar disorder, unspecified; E11.9 Type 2 diabetes mellitus without complications; J44.9 Chronic obstructive pulmonary disease, unspecified; G40.909 Epilepsy, unspecified, not intractable, without status epilepticus; D64.9 Anemia, unspecified; F17.210 Nicotine dependence, cigarettes, uncomplicated; Z79.899 Other long term (current) drug therapy
CPT/HCPCS: 80048; 80307; 81001; 85025; 87081; 87804; 99285; G0480